=== PATIENT | male | born 1960 | race Caucasian/White ===

== ENCOUNTER 2017-06-18 07:45 | Inpatient (IN) | payer BC ==
--- NOTE | 2017-06-10 13:15 | HP ---
PREOPERATIVE HISTORY AND PHYSICAL: DATE OF ADMISSION: 06/18/17 PROVIDER: Elham Ramirez MD * (DICTATED BY PIPE CONKLIN) CHIEF COMPLAINT: Right knee pain. HISTORY OF PRESENT ILLNESS: Shabbir is a 56-year-old gentleman who has been followed by Dr. Ramirez for ongoing pain in his right knee. It is increased with any ambulation, going up and down stairs, or prolonged standing. He has tried antiinflammatories, pain medication injections, and physical therapy. He is now interested in surgical intervention for correction of the problem. PAST MEDICAL HISTORY: Hypertension, hypercholesterolemia, BPH, osteoarthritis, and obstructive sleep apnea, and insomnia. PAST SURGICAL HISTORY: Bilateral knee arthroscopies, nasal surgery. He reports no complications with the anesthesia with those procedures. CURRENT MEDICATIONS: 1. Percocet 5/325 mg 1 tablet p.o. q. 6 p.r.n. pain. 2. Lipitor 10 mg p.o. q.h.s. 3. Viagra 50 mg by mouth as needed. 4. Avalide 150/12.5 mg 1 p.o. q. day. 5. Ecotrin full strength daily. 6. Multivitamin daily. 7. Dulera inhaler daily. FAMILY HISTORY: Positive for heart disease, diabetes, and cancer. 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 He lives with his . He quit smoking 7 years ago, however, he smoked for 25 years prior to that. He occasionally consumes alcohol. He denies recreational drug use. REVIEW OF SYSTEMS: Constitutional: Negative for recent hospitalizations, fevers, chills, night sweats, or weight loss. HEENT: Negative for headaches, lightheadedness, or balance problems. Negative for blurred or double vision, changes to his hearing, sore throat, runny nose, or frequent nose bleeds. Cardiovascular: Negative for chest pain with exertion, history of heart attack , heart murmur, heart palpitations. Positive for high blood pressure. Negative for embolism or deep vein thrombosis. Respiratory: Negative for chronic cough. Positive for occasional shortness of breath with exertion. Negative for asthma and positive for COPD. Gastrointestinal: Negative for heartburn, nausea, vomiting, diarrhea, constipation, or GERD. Genitourinary: Negative for nighttime urination. Positive for urinary frequency and BPH. Negative for urinary tract infections, or kidney problems. Musculoskeletal: Negative for chronic back pain or recent fracture. Skin: Negative for rashes, lesions, lumps or sores. Neurologic: Negative for seizure, stroke, epilepsy, depression or anxiety. Endocrine: Negative for diabetes or thyroid problems. Hematology: Negative for easy bleeding, bruising or anemia. PHYSICAL EXAMINATION GENERAL: He is a well-developed, well-nourished pleasant male, in no acute distress at rest. He is alert and oriented x3 with appropriate mood and affect. VITAL SIGNS: The patient is 5 feet 11 inches, 204 pounds. Blood pressure 119/ 72, pulse 76, temperature 97.8. HEENT: Normocephalic, atraumatic. Hearing and vision are grossly intact. NECK: His trachea is midline. RESPIRATORY: Lungs are clear to auscultation bilaterally. No wheezes, rales, or rhonchi. CARDIOVASCULAR: Regular rate and rhythm. No murmurs, rubs, or gallops. Normal S1, S2. ABDOMEN: Soft, nondistended, nontender. Normal bowel sounds. EXTREMITIES: Gait: His gait is antalgic favoring the right knee. There is mild thrust at the knee. Exam of the right lower extremity, skin is intact. There are no abrasions or open wounds. There is a moderate effusion at the knee joint. He is tender to palpation along the medial joint line. He has 10 to 120 degrees of flexion. There is no varus or valgus instability. There is no palpable masses or lymph nodes. There are no varicosities or edema distally. He has 5/5 ankle dorsiflexion and plantar flexion strength. Sensation to light touch is intact. He has a 2+ dorsalis pedis pulse. IMAGING: Standing views of the right knee were reviewed in the office and showed advanced degenerative osteoarthritis of the right knee joint with bone-on -bone contact in the medial joint space. There is tricompartmental joint space narrowing, osteophyte formation, and subchondral sclerosis. IMPRESSION: Right knee osteoarthritis. PLAN: The patient is to undergo right total knee arthroplasty by Dr. Ramirez on 06/18/17. The risks, benefits and postoperative course were discussed with the patient at length and he would like to proceed. A prescription for Percocet was sent to his pharmacy for postoperative pain, Coumadin for DVT prophylaxis was also sent. All of his questions were answered to his full satisfaction. He is understanding to call should he develop any problems or concerns. PIPE CONKLIN [id number]/[facility] #: [id number] JD
[~2017-06-18 07:45] MED LIST: Buffered Lidocaine 0.9% SYRIN* 5 ML/SYR SYRINGE INTRADERM ONE; Buffered Lidocaine 0.9% SYRIN* 5 ML/SYR SYRINGE ONE; Gabapentin CAP(*) 300 MG ONE; Gabapentin CAP(*) 400 MG PO ONE; Ibuprofen TAB* 400 MG ONE; Ibuprofen TAB* 400 MG PO ONE; ceFAZolin 2 GM PREMIX (*) 2 GM/50 ML BAG IVPB ONE
[2017-06-18] MEDS ORDERED: Sodium Bicarbonate 8.4%* 50 ML SYRINGE ONE (08:48)
[2017-06-18] MEDS ORDERED: Sodium Bicarbonate 8.4% IV* 50 ML VIAL ONE (09:15)
[2017-06-18] MEDS ORDERED: Midazolam* 1 MG/ML 10 ML VIAL (10 MG) ONE (09:15)
[2017-06-18] MEDS ORDERED: fentaNYL* 50 MCG/ML 2 ML VIAL (100 MCG VIAL) ONE (09:15)
[2017-06-18] MEDS ORDERED: Propofol* 500 MG/50 ML BTL ONE (09:57)
[2017-06-18] MEDS ORDERED: Bisacodyl SUPP* 10 MG SUPP PR PRN (10:37)
[2017-06-18] MEDS ORDERED: Polyethylene Glycol 3350* 17 GM PACKET PO PRN (10:37)
[2017-06-18] MEDS ORDERED: Ketorolac INJ* 30 MG/ML 1 ML VIAL IV PRN (10:40)
[2017-06-18] MEDS ORDERED: EPHEDrine (Pressors)* 50 MG/ML VIAL IV PUSH PRN (10:40)
[2017-06-18] MEDS ORDERED: DiMENhydriNATE IV* 50 MG/ML VIAL IV PUSH PRN (10:40)
[2017-06-18] MEDS ORDERED: Ondansetron INJ* 2 MG/ML VIAL IV PRN (10:40)
[2017-06-18] MEDS ORDERED: Ropivacaine 0.2% EPIDURAL* 200 MG/100 ML BAG EPIDURAL ONE (10:56)
[2017-06-18] MEDS ORDERED: Ropivacaine 0.2% EPIDURAL* 200 MG/100 ML BAG EPIDURAL SCH (11:00)
[2017-06-18] MEDS ORDERED: Lidocaine 2% EPI 1:200000 MPF* 20 ML VIAL ONE ×2 (11:58)
[2017-06-18] MEDS ORDERED: Propofol* 10 MG/ML 20 ML BTL IV PUSH ONE (11:58)
[2017-06-18] MEDS ORDERED: oxyCODONE TAB* 5 MG TAB ONE (13:48)
[2017-06-18] MEDS: oxyCODONE TAB* 5 MG TAB PO PRN ×3 (13:49→22:58)
--- NOTE | 2017-06-18 13:52 | RAD ---
HISTORY: Status post right knee arthroplasty COMPARISONS: April 20, 2017 VIEWS: 2, Frontal and lateral views of the right knee FINDINGS: BONE DENSITY: Normal. BONES: The patient is status post right knee arthroplasty. There is no hardware failure or osteolysis. JOINTS: The patient is status post right knee arthroplasty ALIGNMENT: There is no dislocation. SOFT TISSUES: There is post surgical change to the soft tissues. OTHER FINDINGS: None. IMPRESSION: STATUS POST RIGHT KNEE ARTHROPLASTY
[2017-06-18] MEDS ORDERED: Warfarin TAB(*) 6 MG PO ONE (17:00)
[2017-06-18] MEDS: Atorvastatin* 10 MG TAB PO SCH (17:07)
[2017-06-18] MEDS: ceFAZolin 1 GM VIAL(*) 1 GM in NS 0.9% 50 ML* 50 ML IVPB SCH (18:10)
--- NOTE | 2017-06-18 19:58 | CONS ---
CC: Dr. Jung Gonsales; Dr. Ramirez * MEDICAL CONSULTATION REPORT: DATE OF CONSULT: 06/18/17 REQUESTING PROVIDER: Dr. Elham Ramirez. PRIMARY CARE PROVIDER: Dr. Jung Gonsales. CONSULTING PROVIDER: PIPE Daniel SUPERVISING PHYSICIAN: Dr. Hanna Gonzales. CHIEF COMPLAINT: Medical co-management status post right total knee arthroplasty. HISTORY OF PRESENT ILLNESS: This is a pleasant 56-year-old gentleman with hypertension, hyperlipidemia, BPH, obstructive sleep apnea, and chronic bronchitis, who underwent elective total knee arthroplasty with Dr. Ramirez earlier today. Hospitalist group has been asked to consult for medical co- management. The patient was seen by his primary care provider preoperatively and there were no concerns initiated by PCP at that time. The patient reports that his chronic medical conditions are well controlled and he denies any recent acute illness including complaints of fever, cough, chest pain, palpitations, nausea, vomiting, diarrhea. The patient has no history of known coronary disease. He reports what has been told as a chronic bronchitis that is generally worse during the spring and fall seasons, for which he uses Dulera daily. He denies a known diagnosis of asthma or COPD. He does have a history of smoking, but quit about 7 years ago. He states that he uses his Dulera daily and has had not had any recent exacerbations. When evaluated postoperatively, the patient reports little to no pain. No complains of nausea or vomiting. No chest pain, shortness of breath, or palpitations. PAST MEDICAL HISTORY: 1. Hypertension. 2. Hyperlipidemia. 3. BPH. 4. Obstructive sleep apnea. 5. Osteoarthritis. 6. Chronic bronchitis. PAST SURGICAL HISTORY: 1. Bilateral knee arthroscopy. 2. Nasal surgery. HOME MEDICATIONS: 1. Aspirin 81 mg p.o. daily - held for 4 days preoperatively. 2. Atorvastatin 10 mg p.o. daily. 3. Ipratropium nasal spray, 1 spray in each nostril twice daily. 4. Irbesartan/hydrochlorothiazide 1 tablet p.o. daily. 5. Dulera 200/5 one puff inhaled twice daily. 6. Multivitamin. 7. Percocet 5/325 one tablet p.o. q.6 hours as needed for pain. 8. Potassium over the counter in low-dose formulation. 9. Viagra 50 mg p.o. as needed. SOCIAL HISTORY: The patient lives at home with his . He quit smoking approximately 7 years ago, unsure of his pack-year history. REVIEW OF SYSTEMS: As noted above in the HPI, all systems reviewed and otherwise negative. PHYSICAL EXAM: Most recent vitals, temperature 96.8 degrees Fahrenheit, pulse 57 beats per minute, respiratory rate 14, oxygen saturation 98%, blood pressure 119/82 mmHg. General: This is a very pleasant 56-year-old gentleman accompanied by his , who is sitting comfortably in the recovery area. HEENT : Head is normocephalic, atraumatic. Mucous membranes are pink and moist. Cardiovascular: Heart has regular rate and rhythm without murmurs, rubs, or gallops. Respiratory: Lungs are clear to auscultation without wheezes, crackles , or rhonchi. Abdomen: Abdomen is soft and nontender to palpation. Extremities : No edema noted. Right lower extremity with a surgical dressing and Cryo unit in place. Skin: Limited exam, shows no concerning rashes or lesions. Psych: The patient is alert and appropriately oriented. DIAGNOSTIC STUDIES/LAB DATA: Reviewed CBC, basic metabolic panel, PT and PTT from 06/05/17. All labs were essentially within normal limits. Preop hemoglobin specifically 15.1 g/dL. Preop creatinine of 0.88. Imaging: Preop EKG shows a normal sinus rhythm. ASSESSMENT AND PLAN: This is a 56-year-old gentleman with hypertension; hyperlipidemia; obstructive sleep apnea, compliant with CPAP; chronic bronchitis ; benign prostatic hyperplasia; osteoarthritis, who underwent an elective total knee arthroplasty with Dr. Ramirez earlier today. Hospitalist group has been consulted for medical co-management. 1. Status post right total knee arthroplasty - postoperative management including pain control, DVT prophylaxis, and discharge planning will be per Orthopedic Surgery. 2. Hypertension - the patient is normotensive postoperatively and mildly bradycardic. We will hold his irbesartan/hydrochlorothiazide on postoperative day #1 reevaluate for appropriateness to resume on postop day 2. 3. Obstructive sleep apnea - the patient is compliant with CPAP and brought his home unit with him. 4. Hyperlipidemia - plan to continue Lipitor. 5. Chronic bronchitis - the patient's symptoms are well controlled with Dulera and plan to continue postoperatively. 6. Code status - the patient is full code. 7. DVT prophylaxis - this will be per Orthopedic Surgery with plan for Lovenox bridging to Coumadin. 8. Healthcare proxy is the patient's . DISPOSITION: The patient is being admitted to orthopedic surgery service, hospitalist group will continue to follow along during his postoperative stay. PIPE DANIEL [id number]/[facility] #: [id number] JD
[2017-06-18] MEDS: Docusate CAP* 100 MG PO SCH (20:09)
[2017-06-18] MEDS: Magnesium Hydroxide LIQ* 30 ML UDC PO SCH (20:09)
[2017-06-19] MEDS: ceFAZolin 1 GM VIAL(*) 1 GM in NS 0.9% 50 ML* 50 ML IVPB SCH ×2 (00:58→09:22)
[2017-06-19] MEDS: oxyCODONE TAB* 5 MG TAB PO PRN ×5 (04:47→21:24)
[2017-06-19] MEDS: oxyCODONE/Acetamin 5/325 MG* TAB PO PRN ×5 (05:38→23:41)
[2017-06-19] MEDS ORDERED: diPHENhydraMINE PO* 25 MG PO PRN (06:00)
[2017-06-19] MEDS ORDERED: Acetaminophen TAB* 325 MG PO PRN (06:00)
[2017-06-19] MEDS ORDERED: Ondansetron INJ* 2 MG/ML VIAL IV PRN (06:00)
--- NOTE | 2017-06-19 06:00 | OP ---
OPERATIVE REPORT: DATE OF OPERATION: 06/18/17 DATE OF : 62 SURGEON: Elham Ramirez MD SOLID WASTE MANAGER: PIPE Burleson Ms. did help throughout the procedure with preparation of the leg, wound retraction, manipul ation of the knee, and wound closure. ANESTHESIOLOGIST: Ranjan Espana MD ANESTHESIA: Spinal epidural. PRE-OP DIAGNOSIS: Severe degenerative osteoarthritis of the right knee joint. POST-OP DIAGNOSIS: Severe degenerative osteoarthritis of the right knee joint. OPERATIVE PROCEDURE: Right total knee arthroplasty. INDICATIONS: Mr. Acuna is a 56-year-old gentleman with years of increasingly severe right knee pain. He failed conservative treatment with antiinflammatories, pain medications, intraarticular injection s, and physical therapy. Radiographs confirmed alkv-[id number] arthritis. The patient was developing s evere varus deformity and flexion contracture. Due to continued pain and decreased quality of life, he elected to undergo right total knee arthroplasty. Informed consent was obtained from the patient. He understood the risks of the procedure included but were not limited to bleeding, infection, naukl ge to nearby structures, continued pain, need for further surgery, intraoperative fracture, nerve pal sy, hardware failure or loosening, knee stiffness, loss of motion, stroke, heart attack, blood clot, and . The patient wished to proceed. He understood due to his young age and heavy labor, he wa s at risk of early loosening and failure of the implant. He wished to proceed. HARDWARE USED: Cemented [employer] total knee hardware; for the cement, 2 packages of simplex bone cement; for the femur, a size 6 narrow right Legion Oxinium femoral component; for the tibia, a size 5 right tibial baseplate; for the insert, a 9-mm size 5/6 posterior stabilized articular insert; for the patella, 35- mm 3 peg all poly patellar. COMPLICATIONS: None. ESTIMATED BLOOD LOSS: 250 cc. TOURNIQUET TIME: 61 minutes. SPECIMENS: Bone and cartilage from the right knee joint sent to Pathology. INTRAOPERATIVE FINDINGS: Intraoperatively, the patient was found to have 20-degree flexion contractu re to start. He had full-thickness loss of cartilage in all 3 compartments. A 12-degree varus defor mity at the knee. He had large osteophytes throughout the knee joint. DESCRIPTION OF PROCEDURE: Mr. Acuna was identified in the preanesthesia unit. His right lower extrem ity was marked as the correct operative side. Informed consent was signed and placed in the chart. The patient was taken to the operating room and placed under spinal epidural anesthesia. A Marvin cat heter was placed. Tourniquet was placed on the right thigh. Right lower extremity was prepped and dr aped in the usual sterile fashion. Preop time-out was made to correctly identify the patient's side and site. Appropriate perioperative antibiotics were given within 1 hour of incision. Tourniquet was inflated until tourniquet time for this procedure was 61 minutes. A 12-cm midline inc ision was made with a 10 blade and carried down to the extensor mechanism. A new 10 blade was used t o make a standard medial parapatellar arthrotomy. Patella was subluxed laterally. Exposure was difficult due to extensive osteophyte formation and con tracture. The knee was brought out into full extension and the patella was everted. Large amount of osteophytes superiorly was removed. Oscillating saw was used to remove 9 mm of patellar bone and car tilage. At this point, the knee could be flexed up more easily. Patella was subluxed laterally. Cheyanne ctrocautery was used to subperiosteally elevate soft tissue off the superomedial tibia. Extensive me dial tibial osteophytes were noted and these were removed with a rongeur. Anterior horn of the later al meniscus was sharply released. A drill was used to enter the distal femur. Intramedullary distal femoral cutting guide was pinned on the distal femur and oscillating saw was used to make the approp riate distal femoral cut. Next, the external rotation guide was pinned on the distal femur. Distal femur was sized to a size 6. Size 6 multi-cutting jig was pinned on the distal femur. The oscillati ng saw was used to make the appropriate 4-chamfer cuts. The PCL was completely released and the tibi a was subluxed anteriorly. Extramedullary tibial cutting guide was pinned on the proximal tibia. Oscillating saw was used to ma ke the proximal tibial cut perpendicular to the mechanical axis of the tibia. The bone was carefully removed. The knee was brought out into full extension. His alignment was much improved. Medial and lateral li gamentous balancing was satisfactory. Flexion and extension gaps were well balanced. The knee was i n full extension with a spacer block. The knee was flexed up. Lamina design assistant was placed both medially and laterally. Any remaining menisc us was carefully removed using electrocautery. Posterior osteophytes were removed using a curved ost eotome. A size 6 narrow right femoral trial was chosen. This was impacted on to the distal femur an d had excellent fit. Tibial tray and drop hansel once again confirmed a satisfactory proximal tibial cut . A size 5 tibial tray trial with a 9-mm insert trial was placed and the knee was taken through range of motion. The knee had full extension with hamstring tightness. Flexion to 130 degrees with satis factory patellofemoral tracking. The patella was everted. Patella was sized to a size 35. Three peg holes were drilled thorough the size 35 guide. A 35 trial patella was placed and the knee was taken through range of motion. There was satisfactory patellofemoral tracking. All trials were carefully removed. Bony cut surfaces were copiously irrigated with sterile saline an d dried. Tibia was subluxed anteriorly and sized to a size 5. Proximal tibia was prepared using a si ze 5 keel punch. All bony cut surfaces were copiously irrigated with sterile saline and dried. Jada l implants were cemented into place starting with the tibia, followed by the femur, and lastly the pa tella. A 9-mm insert trial was placed while the knee was brought into full extension. The cement was allowed to fully cure and the tourniquet was turned down at 61 minutes. The knee was copiously irrig ated with sterile saline. Once the cement had fully cured, the insert trial was removed. Any remaining cement from around the capsule and hardware was carefully removed. Electrocautery was used to obtain meticulous hemostasis. Final insert chosen was a 9-mm posterior stabilized articular insert. This was locked into positio n on the tibial tray without difficulty. Stability of the insert was checked and rechecked and noted to be stable. The extensor mechanism was closed over a medium Hemovac drain using interrupted #1 Vicryl's. The res t of the incision was closed in a layered fashion using 0 and 2-0 Vicryl's. Skin was closed using ru nning 3-0 nylon suture. Sterile Xeroform, 4x4's, and Webril were used to cover the incision. Peter wr ap and cold pack were placed over this. The patient's anesthesia was reversed without difficulty. He was taken to the PACU in stable conditi on. Intended weightbearing will be weightbearing as tolerated. Intended DVT prophylaxis will be Coum celeste with a Lovenox bridge. [id number]/[facility] #: [id number]
[2017-06-19] MEDS: Morphine INJ* 2 MG/ML 1 ML SYRINGE (TWO MG - NEW SYRINGE VERSION) IV PRN ×4 (06:22→19:01)
[2017-06-19 06:44] LABS: Hematocrit 30 % (42-52); Hemoglobin 10.8 g/dl (14.0-18.0)
[2017-06-19 07:00] LABS: BUN/Creatinine Ratio 17.2 (8-20); Calcium 8.1 mg/dL (8.6-10.3); EGFR African American 108.5 (>60); EGFR Non-African American 84.4 (>60)
[2017-06-19] MEDS: Morphine TAB Extended Release (*) 30 MG TAB.ER PO SCH ×2 (07:19→18:54)
--- NOTE | 2017-06-19 07:24 | PN ---
Progress Note - Progress Note Date of Service: 06/19/17 SOAP: Subjective: Pt. is alert, reports 10/10 pain and has already had all breakthrough. Objective: Vital Signs: Temp Pulse Resp BP Pulse Ox 99.3 F 74 16 103/51 95 06/19/17 03:29 06/19/17 03:29 06/19/17 07:19 06/19/17 03:29 06/19/17 03:29 Laboratory Results - last 24 hr 06/19/17 06/19/17 06/19/17 06:25 06:25 06:25 Hgb 10.8 L Hct 30 L INR (Anticoag Therapy) 1.17 H Sodium 134 Potassium 4.0 Chloride 103 Carbon Dioxide 26 Anion Gap 5 BUN 16 Creatinine 0.93 Est GFR ( Amer) 108.5 Est GFR (Non-Af Amer) 84.4 BUN/Creatinine Ratio 17.2 Glucose 116 H Calcium 8.1 L RLE - drain removed, tip intact, distally nvi. +df/pf, full sens lt, 2+ dp pulse. 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 in NAD but expressing uncontrolled 10/10 pain - alert will add morphine contin 30 bid 8 mg coumadin today with lovenox bridge PT/OT - wbat rle plan d/c to home tomorrow
[2017-06-19] MEDS: Vitamin THERAPEUTIC TAB PO SCH (08:24)
[2017-06-19] MEDS: Docusate CAP* 100 MG PO SCH ×2 (08:24→19:28)
[2017-06-19] MEDS: Magnesium Hydroxide LIQ* 30 ML UDC PO SCH ×2 (08:24→19:28)
[2017-06-19] MEDS ORDERED: IRBESARTAN HYDROCHLOROTHIAZIDE PO SCH (09:00)
[2017-06-19] MEDS: Enoxaparin(*) 40 MG/0.4 ML SYR SUBCUT SCH (11:25)
[2017-06-19] MEDS: Hydrochlorothiazide TAB* 25 MG PO SCH (14:06)
[2017-06-19] MEDS: Losartan TAB* 25 MG PO SCH (14:07)
--- NOTE | 2017-06-19 16:18 | PN ---
Subjective Date of Service: 06/19/17 Interval History: Patient has no acute complaints except for uncontrolled pain. Patient stats his pain was at 7/10 at the time of the interview and had been 10/10 earlier in the day. Patient feels somewhat better with the initiation of MS Contin. No CP, SOB , Abdominal pain, Dysuria, F/C, N/V, changes in urine, or other complaints. Family History: Unchanged from Admission Social History: Unchanged from Admission Past Medical History: Unchanged from Admission Objective Active Medications: Acetaminophen (Tylenol Tab*) 650 mg PO Q4H PRN PRN Reason: FEVER/PAIN Atorvastatin Calcium (Lipitor*) 10 mg PO QPM [facility] Last Admin: 06/18/17 17:07 Dose: 10 mg Bisacodyl (Dulcolax Supp*) 10 mg CA DAILY PRN PRN Reason: constipation Diphenhydramine HCl (Benadryl Po*) 25 mg PO Q6H PRN PRN Reason: itching Docusate Sodium (Colace Cap*) 100 mg PO BID [facility] Last Admin: 06/19/17 08:24 Dose: 100 mg Enoxaparin Sodium (Lovenox(*)) 40 mg SUBCUT Q24H [facility] Last Admin: 06/19/17 11:25 Dose: 40 mg Hydrochlorothiazide (Hydrodiuril Tab*) 12.5 mg PO DAILY [facility] Last Admin: 06/19/17 14:06 Dose: 12.5 mg Ropivacaine (Ropivacaine 0.2% Epidural*) 200 mg in 100 mls @ 0 mls/hr EPIDURAL .PER RATE KATELYNN; Per Protocol PRN Reason: Protocol Last Admin: 06/18/17 20:47 Dose: 12 mls/hr Lactated Ringer's (Lactated Ringers 500 Ml Bag*) 500 mls @ 2,000 mls/hr IV ONCE PRN PRN Reason: FOR SBP < 90 Lactated Ringer's (Lactated Ringers 1000 Ml Bag*) 1,000 mls @ 100 mls/hr IV PER RATE [facility] Losartan Potassium (Cozaar Tab*) 50 mg PO DAILY [facility] Last Admin: 06/19/17 14:07 Dose: 50 mg Magnesium Hydroxide (Milk Of Magnesia Liq*) 30 ml PO BID [facility] Last Admin: 06/19/17 08:24 Dose: 30 ml Morphine Sulfate (Morphine Inj (Syringe)*) 2 mg IV Q2H PRN PRN Reason: PAIN Last Admin: 06/19/17 11:25 Dose: 2 mg Morphine Sulfate (Ms Contin(*)) 30 mg PO Q12H [facility] Last Admin: 06/19/17 07:19 Dose: 30 mg Multivitamins (Theragran Tab*) 1 tab PO DAILY [facility] Last Admin: 06/19/17 08:24 Dose: 1 tab Ondansetron HCl (Zofran Inj*) 4 mg IV Q6H PRN PRN Reason: nausea Oxycodone HCl (Roxycodone Tab*) 10 mg PO Q4H PRN PRN Reason: PAIN - SEVERE Last Admin: 06/19/17 13:05 Dose: 10 mg Oxycodone/Acetaminophen (Percocet 5/325 Tab*) 1 tab PO Q4H PRN PRN Reason: PAIN Last Admin: 06/19/17 14:07 Dose: 1 tab Pharmacy Profile Note (Coumadin Daily Reminder*) 1 note FOLLOW UP 1700 [facility] Last Admin: 06/18/17 17:08 Dose: 1 note Polyethylene Glycol/Electrolytes (Miralax*) 17 gm PO DAILY PRN PRN Reason: Constipation Warfarin Sodium (Coumadin Tab(*)) 8 mg PO ONCE@1700 ONE PRN Reason: Protocol Stop: 06/19/17 17:01 Vital Signs 06/18/17 06/18/17 06/18/17 16:21 17:07 17:17 Temperature 98.2 F 98.2 F Pulse Rate 63 71 Respiratory 18 16 20 Rate Blood Pressure 117/70 130/79 (mmHg) O2 Sat by Pulse 99 98 Oximetry 06/18/17 06/18/17 06/18/17 19:15 19:16 19:24 Temperature 98.4 F Pulse Rate 64 68 Respiratory 20 15 Rate Blood Pressure 90/56 94/54 (mmHg) O2 Sat by Pulse 92 Oximetry 06/18/17 06/18/17 06/18/17 20:09 21:09 22:58 Temperature 98.5 F Pulse Rate 68 Respiratory 15 20 18 Rate Blood Pressure 106/61 (mmHg) O2 Sat by Pulse 97 Oximetry 06/18/17 06/19/17 06/19/17 23:42 00:58 03:05 Temperature 99.5 F Pulse Rate 78 Respiratory 16 18 Rate Blood Pressure 106/60 (mmHg) O2 Sat by Pulse 96 97 Oximetry 06/19/17 06/19/17 06/19/17 03:29 04:47 05:38 Temperature 99.3 F Pulse Rate 74 Respiratory 16 15 16 Rate Blood Pressure 103/51 (mmHg) O2 Sat by Pulse 95 Oximetry 06/19/17 06/19/17 06/19/17 06:22 06:24 07:15 Temperature Pulse Rate Respiratory 17 20 16 Rate Blood Pressure (mmHg) O2 Sat by Pulse Oximetry 06/19/17 06/19/17 06/19/17 07:19 07:34 08:23 Temperature 98.5 F Pulse Rate 71 Respiratory 16 18 16 Rate Blood Pressure 164/68 (mmHg) O2 Sat by Pulse 94 Oximetry 06/19/17 06/19/17 06/19/17 08:56 09:25 10:03 Temperature Pulse Rate Respiratory 16 16 16 Rate Blood Pressure (mmHg) O2 Sat by Pulse Oximetry 06/19/17 06/19/17 06/19/17 11:19 11:24 11:25 Temperature 99.5 F Pulse Rate 77 Respiratory 16 18 16 Rate Blood Pressure 151/71 (mmHg) O2 Sat by Pulse 92 Oximetry 06/19/17 06/19/17 06/19/17 12:10 13:05 13:08 Temperature Pulse Rate Respiratory 16 16 16 Rate Blood Pressure (mmHg) O2 Sat by Pulse Oximetry 06/19/17 06/19/17 06/19/17 14:07 15:19 16:04 Temperature Pulse Rate Respiratory 16 16 Rate Blood Pressure (mmHg) O2 Sat by Pulse 94 Oximetry Oxygen Devices in Use Now: None Appearance: Patient is a 56yo who appears stated age and is sitting in the bed in [facility]. Eyes: No Scleral Icterus, PERRLA Ears/Nose/Mouth/Throat: NL Teeth, Lips, Gums, Clear Oropharnyx, Mucous Membranes Moist Neck: NL Appearance and Movements; NL JVP, Trachea Midline Respiratory: Symmetrical Chest Expansion and Respiratory Effort, Clear to Auscultation Cardiovascular: NL Sounds; No Murmurs; No JVD, RRR, No Edema Abdominal: NL Sounds; No Tenderness; No Distention, No Hepatosplenomegaly Lymphatic: No Cervical Adenopathy Extremities: - - Right knee covered with bulky dressing and ice pack. Skin: No Rash or Ulcers, No Nodules or Sclerosis Neurological: Alert and Oriented x 3, NL Sensation, NL Muscle Strength and Tone Result Diagrams: 06/19/17 06:25 06/19/17 06:25 Assess/Plan/Problems-Billing Assessment: Patient is a 56yo male who is POD #1 after a Right Total Knee arthroplasty. Patient has relatively uncontrolled pain which is improving. Patient has voided and has no other complaints. - Patient Problems (1) Post-operative state Current Visit: Yes Status: Acute Code(s): Z98.890 - OTHER SPECIFIED POSTPROCEDURAL STATES SNOMED Code(s): 78956879 Comment: POD #1. Pain relatively uncontrolled but improving. Continue management per primary team. (2) Hypertension Current Visit: Yes Status: Acute Code(s): I10 - ESSENTIAL (PRIMARY) HYPERTENSION SNOMED Code(s): 78848173 Comment: Patient hypertensive today. Start on Losartan and HCTZ. Continue to monitor. Resume home medications on discharge. (3) AIDAN (obstructive sleep apnea) Current Visit: Yes Status: Acute Code(s): G47.33 - OBSTRUCTIVE SLEEP APNEA ( ADULT) (PEDIATRIC) SNOMED Code(s): 52000244 Comment: Continue home CPAP. (4) HLD (hyperlipidemia) Current Visit: Yes Status: Acute Code(s): E78.5 - HYPERLIPIDEMIA, UNSPECIFIED SNOMED Code(s): 08432800 Comment: Continue home lipitor. (5) Chronic bronchitis Current Visit: Yes Status: Acute Code(s): J42 - UNSPECIFIED CHRONIC BRONCHITIS SNOMED Code(s): 55461267 Comment: Asymptomatic on no respiratory treaments. Continue Dulera at discharge. Status and Disposition: Disposition per primary team, plan for discharge tomorrow.
[2017-06-19] MEDS ORDERED: Warfarin TAB(*) 4 MG PO ONE (17:00)
[2017-06-19] MEDS: Atorvastatin* 10 MG TAB PO SCH (17:55)
[2017-06-20] MEDS: oxyCODONE TAB* 5 MG TAB PO PRN ×3 (01:29→10:23)
[2017-06-20] MEDS: oxyCODONE/Acetamin 5/325 MG* TAB PO PRN (03:46)
[2017-06-20] MEDS: Morphine TAB Extended Release (*) 30 MG TAB.ER PO SCH (06:48)
--- NOTE | 2017-06-20 07:51 | PN ---
Progress Note - Progress Note Date of Service: 06/20/17 SOAP: Subjective: patient with no complaints, pain controlled with PO meds Objective: Vital Signs Temp Pulse Resp BP Pulse Ox 98.9 F 75 18 125/65 94 06/20/17 03:54 06/20/17 03:54 06/20/17 06:48 06/20/17 03:54 06/20/17 03:54 Laboratory Last Values Hgb 10.8 g/dl (14.0-18.0) L 06/19/17 06:25 Hct 30 % (42-52) L 06/19/17 06:25 INR (Anticoag Therapy) 1.17 (0.89-1.11) H 06/19/17 06:25 Sodium 134 mmol/L (133-145) 06/19/17 06:25 Potassium 4.0 mmol/L (3.5-5.0) 06/19/17 06:25 Chloride 103 mmol/L (101-111) 06/19/17 06:25 Carbon Dioxide 26 mmol/L (22-32) 06/19/17 06:25 Anion Gap 5 mmol/L (2-11) 06/19/17 06:25 BUN 16 mg/dL (6-24) 06/19/17 06:25 Creatinine 0.93 mg/dL (0.67-1.17) 06/19/17 06:25 Est GFR ( Amer) 108.5 (>60) 06/19/17 06:25 Est GFR (Non-Af Amer) 84.4 (>60) 06/19/17 06:25 BUN/Creatinine Ratio 17.2 (8-20) 06/19/17 06:25 Glucose 116 mg/dL (70-100) H 06/19/17 06:25 Calcium 8.1 mg/dL (8.6-10.3) L 06/19/17 06:25 incision: c/d; dressing changed PE: NVI Assessment: s/p right TKA Plan: 1) continue Lovenox/coumadin for DVT prophylaxis 2) PT/OT- WBAT 3) Home today, F/U with James in 2 weeks
--- NOTE | 2017-06-20 07:52 | PN ---
Progress Note - Progress Note Date of Service: 06/20/17 SOAP: Subjective: Pt. is doing much better today with ms contin. Wants to go home. Objective: RLE - dressing changed, inc c/d/i. distally nvi. Vital Signs: Temp Pulse Resp BP Pulse Ox 98.9 F 75 18 125/65 94 06/20/17 03:54 06/20/17 03:54 06/20/17 06:48 06/20/17 03:54 06/20/17 03:54 Assessment: 56yo M pod 2 s/p RTKA Plan: am labs pending wbat pt/ot plan d/c to home today with vns will send ER morphine today
[2017-06-20 08:38] LABS: Hematocrit 30 % (42-52); Hemoglobin 10.6 g/dl (14.0-18.0)
[2017-06-20 08:43] VITALS: BP 116/64
[2017-06-20] MEDS: Losartan TAB* 25 MG PO SCH (08:47)
[2017-06-20] MEDS: Magnesium Hydroxide LIQ* 30 ML UDC PO SCH (08:48)
[2017-06-20] MEDS: Vitamin THERAPEUTIC TAB PO SCH (08:48)
[2017-06-20] MEDS: Docusate CAP* 100 MG PO SCH (08:48)
[2017-06-20] MEDS: Hydrochlorothiazide TAB* 25 MG PO SCH (08:48)
[2017-06-20] MEDS: Enoxaparin(*) 40 MG/0.4 ML SYR SUBCUT SCH (10:27)
--- NOTE | 2017-06-21 04:08 | DS ---
AMENDED REPORT NOW INCLUDES COSIGNER DESIGNATION - ESIGNED BEFORE ADJUSTMENT DISCHARGE SUMMARY: DATE OF ADMISSION: 06/18/17. DATE OF DISCHARGE: 06/20/17. SURGEON: Elham Ramirez MD * (DICTATED BY PIPE GERARD) PROCEDURE: A right total knee arthroplasty. PRINCIPAL DIAGNOSIS: Severe end-stage osteoarthritis of the right knee joint. DISCHARGE DIAGNOSIS: Severe end-stage osteoarthritis of the right knee joint. HISTORY OF PRESENT ILLNESS: Mr. Acuna is a 56-year-old gentleman who has complaints of right knee pain secondary to severe end-stage osteoarthritis. He has failed conservative management and elected to proceed with a right total knee arthroplasty. HOSPITAL COURSE: Mr. Acuna is a 56-year-old gentleman. He was admitted electively to the hospital on 06/18/17 and underwent a right total knee arthroplasty which she tolerated well with no complications. Postoperatively, he was placed on Lovenox and aspirin for DVT prophylaxis and on postoperative day #1 his H and H was 10.8 and 30 and postoperative day #2, 10.6 and 30. His INR went from 1.17 to 1.56. At the time of discharge, he was afebrile. He was ambulating well with the aid of a walker. He was discharged home. DISCHARGE MEDICATIONS: 1. Percocet 5/325 one to two tabs every 4-6 hours. 2. Morphine sulfate extended release 15 mg twice daily. 3. Colace 100 mg 2 to 3 tabs daily as needed for constipation. 4. Coumadin 2 mg tabs. 5. Hydrochlorothiazide 12.5 mg daily. 6. Lipitor 10 mg daily. 7. Losartan 50 mg daily. PHYSICAL EXAMINATION: He is afebrile. Vital signs are stable. His wound is clean and dry. He was ambulating well with the aid of a walker. He was distally neurovascularly intact. DISCHARGE INSTRUCTIONS: Mr. Acuna was discharged home. He is given prescription for Percocet 5/325 to take one to two tabs every 4-6 hours as needed for pain. He was also given morphine sulfate extended release 15 mg tabs twice daily. He was given prescription for Colace for constipation. His last INR was 1.56. He was asked to take 6 mg of Coumadin tonight, 6 mg of Coumadin on Thursday night and he will have his INR rechecked Thursday with [facility]. He will follow up with Dr. Ramirez in 2 weeks. He is weightbearing as tolerated. PIPE GERARD [id number]/CPS #: [id number] MTDD
== END 2017-06-20 11:00 | disposition home health service (06) | DRG 302 ==
LOC: AA 07:45 → SSU 15:01
PROVIDERS: ADMIT Orthopaedic Surgery Adult Reconstructive Orthopaedic Surgery; ATTEND Orthopaedic Surgery Adult Reconstructive Orthopaedic Surgery
PROC: 0SRC069 Replacement of Right Knee Joint with Oxidized Zirconium on Polyethylene Synthetic Substitute, Cemented, Open Approach (ICD-10-PCS; principal; 2017-06-18 09:00)
DX: M17.11 Unilateral primary osteoarthritis, right knee (principal); E78.00 Pure hypercholesterolemia, unspecified; I10 Essential (primary) hypertension; N40.0 Benign prostatic hyperplasia without lower urinary tract symptoms; G47.33 Obstructive sleep apnea (adult) (pediatric); G47.00 Insomnia, unspecified; Z79.899 Other long term (current) drug therapy; Z82.49 Family history of ischemic heart disease and other diseases of the circulatory system; Z83.3 Family history of diabetes mellitus; Z80.9 Family history of malignant neoplasm, unspecified; Z87.891 Personal history of nicotine dependence; M25.761 Osteophyte, right knee; J42 Unspecified chronic bronchitis
CPT/HCPCS: 36415; 62327; 80048; 85014; 85018; 85610; 94760; A9270-GY; C1776; J0690; J1650; J1885; J2250; J2270; J2704; J2795; J3010

== ENCOUNTER 2018-08-12 06:41 | Inpatient (IN) | payer BC ==
--- NOTE | 2018-07-28 16:55 | HP ---
DATE OF ADMISSION: 08/26/2018. DATE OF OFFICE VISIT: 07/28/2018. SURGEON: Dr. Elham Ramirez * (dictated by PIPE Burleson). PROCEDURE: Left total knee arthroplasty. CHIEF COMPLAINT: Left knee pain. HISTORY OF PRESENT ILLNESS: Mr. Acuna is a 57-year-old gentleman with continued complaints of left knee pain. He has failed conservative treatment and elected to proceed with a left total knee arthroplasty. PAST MEDICAL HISTORY: Hypertension, high cholesterol, sleep apnea. PAST SURGICAL HISTORY: Right knee arthroscopy, right total knee arthroplasty, left knee arthroscopy, and nasal surgery. CURRENT MEDICATIONS: 1. Lipitor 10 mg at bedtime. 2. Viagra 50 mg as needed. 3. Avalide 150-12.5 mg daily. 4. Clonazepam 2 mg daily. 5. Aspirin 81 mg daily. 6. Dulera inhaler. ALLERGIES: No known drug allergies. FAMILY HISTORY: Coronary artery disease, diabetes, stroke. SOCIAL HISTORY: He is a 57-year-old gentleman, lives with his . He does not smoke, use drugs, he uses occasional alcohol. REVIEW OF SYSTEMS: A complete 14 point review of systems was reviewed. The patient is positive for a history of asthma and a history of hepatitis B. He denies a history of DVT, PE, HIV, MRSA, or anesthesia problems. PHYSICAL EXAMINATION GENERAL: He is well-developed, well-nourished, in no acute distress. VITAL SIGNS: He stands 5'11" tall, weighs 209 pounds. Blood pressure 132/82, heart rate 80. HEENT: Normocephalic, atraumatic. NECK: Supple. No palpable lymph nodes. CARDIO: Regular rate and rhythm. Strong S1, S2. PULMONARY: The lungs are clear to auscultation bilaterally. ABDOMEN: Soft, nontender, nondistended. MUSCULOSKELETAL: Left lower extremity: The skin is intact. There are no open wounds or abrasions. There is a moderate joint effusion. He has some tenderness on the medial joint line. There is a varus deformity of the knee. Range of motion is 10 to 120 degrees of flexion. He has 2+ dorsalis pedis pulse. Intact to sensation. His lower extremity muscle group strengths are intact at 5/5. NEUROLOGIC: He is alert and oriented times three. ASSESSMENT AND PLAN: Mr. Acuna is a 57-year-old gentleman with end-stage osteoarthritis of the left knee. He failed conservative treatment and elected to proceed with a left total knee arthroplasty. The surgery is scheduled for with Dr. Ramirez. Dr. Ramirez discussed the risks and benefits of the surgery at today's visit and all of his questions were answered. He will follow -up with Dr. Ramirez two weeks after the surgery. PIPE BURLESON [id number]/CPS #: [id number] MTDD
[~2018-08-12 06:41] MED LIST changes: -Buffered Lidocaine 0.9% SYRIN* 5 ML/SYR SYRINGE ONE; +Dexamethasone IV* 4 MG/ML 1 ML (4 MG) IV SLOW PU ONE; +Famotidine IV* 10 MG/ML 2 ML (20 mg) IV ONE; -Gabapentin CAP(*) 300 MG ONE; +Gabapentin CAP(*) 300 MG PO ONE; -Gabapentin CAP(*) 400 MG PO ONE; -Ibuprofen TAB* 400 MG ONE; -Ibuprofen TAB* 400 MG PO ONE; +Lactated Ringers 1000 ML Bag* 1,000 ML IV SCH; +Tranexamic Acid 1,000 MG in NS 0.9% 50 ML* (outpatient use) IV SCH; -ceFAZolin 2 GM PREMIX (*) 2 GM/50 ML BAG IVPB ONE; +celeCOXIB CAP* 200 MG PO ONE
[2018-08-12] MEDS ORDERED: Bupivacaine 0.5%* 50 ML VIAL ONE (06:44)
--- OUTSIDE RECORDS SUMMARY | 2018-08-12 06:44 | XMS REPORT | Continuity of Care Document ---
:1960 External Reference #:[id number] Author Name AnaidVignesh rubio Care Team Providers Name Role Phone Jung Gonsales MD Primary Care Physician Unavailable Payers Type Date Identification Numbers Payment Provider Subscriber Effective: 2015 Policy Number: [id number] LEON Mike Macarena Acuna PayID: [id number] [address] [address] [place] [address] Advance Directives Description No Information Available Problems Date Description Provider Status Onset: 08/14/2014 Dyssomnia Florinda Mendes MD Active Onset: 08/14/2014 Chronic pansinusitis Florinda Mendes MD Active Onset: 08/14/2014 Insomnia Florinda Mendes MD Active Onset: 09/18/2014 Obstructive sleep apnea syndrome Florinda Mendes MD Active Onset: 10/29/2015 Localized, primary osteoarthritis Elham Ramirez M.D. Active Onset: 01/16/2017 Localized, primary osteoarthritis of the Elham Ramirez M.D. Active pelvic region and thigh Onset: 07/27/2017 Arthroplasty of knee Elham Ramirez M.D. Active Family History Date Family Member(s) Problem(s) Comments General Heart Disease General Diabetes General Cancer Father Hypertension Father Heart Disease Mother Heart Disease Mother Alzheimer's Disease Mother living in care home in [place] Siblings 1 Siblings Sister w/stroke @ age 53 Social History Type Date Description Comments Sex Unknown Lives With Lives With Children Occupation Currently Working Occupation [email or web address] On hold d/t knee surgery. 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 Allergies, Adverse Reactions, Alerts Description No Known Drug Allergies Medications Medication Date Status Form Strength Qnty SIG Indications Ordering Provider Amoxicillin Active Capsules 500mg 4caps 4 tablets Elham 018 1 hour Angela Ramirez before dental work Walker Active Misc Fixed 5" M25.561 Elham Wheels/Fixed 017 Angela Ramirez With 5 Adjustment Holes/5" M17.0 Lipitor 08/11/2014 Active Tablets 10mg 90tabs 1 by mouth Unknown every night at bedtime Viagra 08/11/2014 Active Tablets 50mg 6tabs 1 by mouth Unknown as needed Avalide 08/11/2014 Active Tablets 150-12 90tabs 1 by mouth Unknown .5mg every day Clonazepam Active Tablets 2mg Unknown Ecotrin Low Active Tablets DR 81mg Unknown Strength Cyclobenzaprine 09/23/2017 - Hx Tablets 10mg 60tabs take 1 tab Elham HCL 07/04/2018 by mouth 2-3 Angela Ramirez times a day as needed Oxycodone-Acetamin 09/14/2017 - Hx Tablets 5-325m 90tabs 1-2 tabs by Elham ophen 07/04/2018 g mouth qhs as Angela Ramirez needed for pain Tramadol HCL 08/11/2017 - Hx Tablets 50mg 60tabs 1 tablet by Nancy 09/07/2017 mouth every MD Margarita 4-6 hours as needed pain Gabapentin 07/27/2017 - Hx Tablets 600mg 90tabs Note M2 Laxmi 09/07/2017 increase 1 5. Cody, MONICA, 1/2 tablets 57 RN, SET UP TECHNICIAN-BC by mouth 1 every night at bedtime Cyclobenzaprine 07/21/2017 - Hx Tablets 10mg 60tabs take 1 tab Elham HCL 09/07/2017 by mouth 2 Angela Ramirez times a day as needed Ibuprofen 07/21/2017 - Hx Tablets 800mg 60tabs 1 tab by Elham 07/27/2018 mouth every Angela Ramirez 8 hours as needed with food Gabapentin 07/13/2017 - Hx Capsules 300mg 30caps 1 tab by Elham 07/27/2017 mouth before Angela Ramirez bed Morphine Sulfate 06/20/2017 - Hx Caps ER 20mg 30caps 1 tablet by Elham ER 06/20/2017 24HR mouth q12 Angela Ramirez hours as needed for pain Colace 06/20/2017 - Hx Capsules 100mg 90caps 1 tab by Elham 07/27/2018 mouth 2-3 Angela Ramirez times a day as needed Morphine Sulfate 06/20/2017 - Hx Tablets ER 15mg 30tabs take one tab Elham ER 07/22/2017 by mouth Angela Ramirez every 12 hours as needed for pain. Coumadin 06/05/2017 - Hx Tablets 2mg 30tabs take 2 mg by M2 Elham 07/22/2017 mouth every 5Lu Ramirez M.D. night at 57 bedtime or 1 as directed by through visiting nurse Commode 06/05/2017 - Hx Misc M2 Elham 07/22/2017 5Lu Ramirez M.D. 57 1 Prosthetic Knee 12/05/2015 - Hx Carolyn Sleeve 07/27/2018 DEBORAH Casillas Varus Unloading 10/29/2015 - Hx wear when M1 Elham Brace Rle 07/27/2018 ambulating Cruz Ramirez M.D. or standing 11 for prolonged periods dx - severe r knee oa Percocet 10/29/2015 - Hx Tablets 5-325m 60tabs 1 tabs by M1 Elham 08/11/2017 g mouth q4-6 7. Angela Ramirez as needed 11 pain Sonata 08/14/2014 - Hx Capsules 5mg 30caps Take One G4 Florinda 06/04/2017 Capsule By Cruz Mendes MD Mouth Once 00 Daily AT Night as Needed Max 1 Capsule / Day Ecotrin - Hx Unknown 04/29/2017 Milk Of Magnesia - Hx as needed Unknown 09/07/2017 Tamsulosin HCL - Hx Capsules 0.4mg qd Marlen, 07/04/2018 MD Cristian Medications Administered in Office Medication Date Status Form Strength Qnty SIG Indications Ordering Provider Synvisc Or Administered Injection Carolyn Synvisc-One 016 Bordoni, ELECTRONIC MAINTENANCE SUPERVISOR Injection 1 MG Synvisc Or Administered Injection Carolyn Synvisc-One 016 Bordoni, ELECTRONIC MAINTENANCE SUPERVISOR Injection 1 MG Depomedrol Administered Injection Elham 40MG 016 Angela Ramirez Immunizations Description No Information Available Vital Signs Date Vital Result Comment 07/28/2018 1:37pm Height 71 inches 5'11" Weight 209.00 lb Heart Rate 80 /min BP Systolic 132 mmHg BP Diastolic 82 mmHg BMI (Body Mass Index) 29.1 kg/m2 07/05/2018 3:42pm Height 71 inches 5'11" Heart Rate 80 /min BP Systolic 120 mmHg BP Diastolic 74 mmHg Body Temperature 98.1 F Pain Level 8 09/14/2017 8:44am Height 71 inches 5'11" Heart Rate 70 /min BP Systolic 142 mmHg BP Diastolic 78 mmHg Respiratory Rate 20 /min Body Temperature 96.9 F Pain Level 0 09/08/2017 11:15am Height 71 inches 5'11" Weight 212.00 lb Heart Rate 96 /min BP Systolic Sitting 124 mmHg BP Diastolic Sitting 84 mmHg Respiratory Rate 14 /min O2 % BldC Oximetry 99 % BMI (Body Mass Index) 29.6 kg/m2 08/17/2017 9:59am Height 71 inches 5'11" Weight 195.00 lb Heart Rate 92 /min BP Systolic 133 mmHg BP Diastolic 83 mmHg Body Temperature 96.6 F BMI (Body Mass Index) 27.2 kg/m2 08/12/2017 11:27am Height 71 inches 5'11" Weight 199.50 lb with shoes Heart Rate 96 /min BP Systolic Sitting 130 mmHg Rue large cuff BP Diastolic Sitting 76 mmHg Rue large cuff Respiratory Rate 16 /min O2 % BldC Oximetry 98 % On Ra BMI (Body Mass Index) 27.8 kg/m2 07/27/2017 8:57am Height 71 inches 5'11" Weight 200.00 lb BP Systolic 124 mmHg BP Diastolic 74 mmHg Respiratory Rate 18 /min Pain Level 3 BMI (Body Mass Index) 27.9 kg/m2 07/22/2017 8:26am Height 71 inches 5'11" Weight 197.12 lb Heart Rate 94 /min BP Systolic Sitting 128 mmHg Rue reg cuff BP Diastolic Sitting 80 mmHg Rue reg cuff Respiratory Rate 16 /min O2 % BldC Oximetry 96 % On Ra BMI (Body Mass Index) 27.5 kg/m2 06/29/2017 8:00am Height 71 inches 5'11" Weight 200.00 lb per pt Heart Rate 78 /min reg BP Systolic Sitting 130 mmHg Lue, reg cuff BP Diastolic Sitting 84 mmHg Lue, reg cuff Respiratory Rate 16 /min Pain Level 4 Right knee BMI (Body Mass Index) 27.9 kg/m2 06/05/2017 10:57am Height 71 inches 5'11" Weight 204.00 lb Heart Rate 76 /min BP Systolic 119 mmHg BP Diastolic 72 mmHg Body Temperature 97.8 F BMI (Body Mass Index) 28.4 kg/m2 04/20/2017 2:48pm Height 71 inches 5'11" Weight 200.00 lb Heart Rate 84 /min BP Systolic 115 mmHg BP Diastolic 70 mmHg Respiratory Rate 20 /min Body Temperature 97.2 F BMI (Body Mass Index) 27.9 kg/m2 01/16/2017 2:02pm Height 71 inches 5'11" Weight 210.00 lb BP Systolic 135 mmHg BP Diastolic 76 mmHg Respiratory Rate 16 /min Body Temperature 97.5 F Pain Level 6 BMI (Body Mass Index) 29.3 kg/m2 07/16/2016 9:31am Height 71 inches 5'11" Weight 210.00 lb Heart Rate 60 /min BP Systolic Sitting 142 mmHg BP Diastolic Sitting 92 mmHg Respiratory Rate 16 /min Pain Level 2 BMI (Body Mass Index) 29.3 kg/m2 05/12/2016 3:24pm Height 71 inches 5'11" Weight 210.00 lb Heart Rate 60 /min Respiratory Rate 16 /min Pain Level 4 BMI (Body Mass Index) 29.3 kg/m2 11/21/2015 3:58pm Height 71 inches 5'11" Weight 210.00 lb Heart Rate 89 /min BP Systolic 156 mmHg BP Diastolic 90 mmHg BMI (Body Mass Index) 29.3 kg/m2 11/05/2015 2:35pm Height 72 inches 6'0" 10/29/2015 1:49pm Height 72 inches 6'0" Weight 210.00 lb Heart Rate 87 /min BP Systolic 150 mmHg BP Diastolic 90 mmHg BMI (Body Mass Index) 28.5 kg/m2 11/03/2014 3:27pm Heart Rate 79 /min BP Systolic Sitting 144 mmHg BP Diastolic Sitting 78 mmHg Respiratory Rate 20 /min O2 % BldC Oximetry 97 % 09/18/2014 3:18pm Height 70 inches 5'10" Weight 200.00 lb Heart Rate 85 /min BP Systolic Sitting 144 mmHg BP Diastolic Sitting 82 mmHg Respiratory Rate 20 /min O2 % BldC Oximetry 97 % BMI (Body Mass Index) 28.7 kg/m2 08/14/2014 3:09pm Height 71 inches 5'11" Weight 210.00 lb Heart Rate 74 /min BP Systolic Sitting 85878 mmHg Respiratory Rate 18 /min Body Temperature 98.1 F O2 % BldC Oximetry 98 % BMI (Body Mass Index) 29.3 kg/m2 Neck Circumference in inches 18.5 Results Test Date Facility Test Result H/L Range Note Urine Culture And 07/09/2017 [facility] Urine Culture SEE RESULT [address] [place] [address] [phone] Urinalysis Profile 07/09/2017 [facility] Urine Color Straw [address] [place] [address] [phone] Urine Appearance Clear Urine Specific Melba 1.009 Low 1.010-1.030 Urine pH 7.0 N 5-9 Urine Urobilinogen Negative Negative Urine Ketones Negative Negative Urine Protein Negative Negative Urine Leukocytes Negative Negative Urine Blood 1+ Abnormal Negative Urine Nitrite Negative Negative Urine Bilirubin Negative Negative Urine Glucose Negative Negative Urine White Blood Cell Trace(0-5/hpf) Absent Urine Red Blood Cell Trace(0-2/hpf) Absent Urine Bacteria Absent Absent Basic Metabolic Panel 06/05/2017 [facility] Sodium 137 mmol/L N [address] [place] [address] [phone] Potassium 3.9 mmol/L N 3.5-5.0 Chloride 103 mmol/L N 101-111 Co2 Carbon Dioxide 27 mmol/L N 22-32 Anion Gap 7 mmol/L N 2-11 Glucose 86 mg/dL N 70-100 Blood Urea Nitrogen 18 mg/dL N 6-24 Creatinine 0.88 mg/dL N 0.67-1.17 BUN/Creatinine Ratio 20.5 High 8-20 Calcium 9.5 mg/dL N 8.6-10.3 Egfr Non- 89.9 N >60 Egfr 115.6 N >60 2 Inr/Protime 06/05/2017 [facility] Inr 0.98 N 0.89-1.[address] [place] [address] [phone] Laboratory test 06/05/2017 [facility] Partial 26.7 seconds N 26.0-36.[address] [place] [address] PTT [phone] Type & Screen 06/05/2017 [facility] Patient A Positive N [address] [place] [address] [phone] Antibody Screen NEGATIVE N Urine Culture And 06/05/2017 [facility] Urine Culture SEE RESULT [address] [place] [address] [phone] Urinalysis Profile 06/05/2017 [facility] Urine Color Yellow N [address] [place] [address] [phone] Urine Appearance Clear N Urine Specific Melba 1.025 N 1.010-1.030 Urine pH 5.0 N 5-9 Urine Urobilinogen Negative N Negative Urine Ketones Negative N Negative Urine Protein Negative N Negative Urine Leukocytes Negative N Negative Urine Blood Negative N Negative * * Abnormal Negative 4 Urine Nitrite Negative N Negative Urine Bilirubin Negative N Negative Urine Glucose Negative N Negative CBC No Diff 06/05/2017 [facility] White Blood 8.5 10^3/uL N 3.5-10.[address] [place] [address] [phone] Red Blood Count 4.63 10^6/uL N 4.0-5.4 Hemoglobin 15.1 g/dL N 14.0-18.0 Hematocrit 44 % N 42-52 Mean Corpuscular Volume 95 fL High 80-94 Mean Corpuscular Hemoglobin 33 pg High 27-31 Mean Corpuscular HGB Conc 35 g/dL N 31-36 Red Cell Distribution Width 13 % N 10.5-15 Platelet Count 210 10^3/uL N 150-450 Mean Platelet Volume 7 um3 Low 7.4-10.4 1 SEE RESULT BELOW Name: KEILA ACUNA : [address]: Elham Ramirez MD Acct: [id number] Unit: [id number] AGE: 56 Location: [facility] Re07/09/17 SEX: M Status: REG REF SPEC: [id number] ZOHRA: 07/09/[address] [facility] [address]: Elham Ramirez MD REQ: [id number] RECD: 07/09/17 STATUS: JIM DUPREE DR: Jung Gonsales MD _ SOURCE: URINE SPDESC: ORDERED: Urine Culture QUERIES: Urine Source: Random Procedure Result Reported Site Urine Culture Final 07/11/17- 0936 ML No Growth (<1,000 CFU/mL) * ML - [facility] ([facility]) . END OF REPORT * ML=Testing performed at [facility] DEPARTMENT OF PATHOLOGY, [address] [place] [address] Odilon Palacios M.D. Director [facility] # [id number] 2 Because ethnic data is not always readily available, this report includes an eGFR for both -Americans and non- Americans. The National Kidney Disease Education Program (NKDEP) does not endorse the use of the MDRD equation for patients that are not between the ages of 18 and 70, are , have extremes of body size, muscle mass, or nutritional status, or are non- or non-. According to the National Kidney Foundation, irrespective of diagnosis, the stage of the disease is based on the level of kidney function: Stage Description GFR(mL/min/1.73 m(2)) 1 Kidney damage with normal or decreased GFR 90 2 Kidney damage with mild decrease in GFR 60-89 3 Moderate decrease in GFR 30-59 4 Severe decrease in GFR 15-29 5 Kidney failure <15 (or dialysis) 3 SEE RESULT BELOW Name: KEILA ACUNA : [address]: Elham Ramirez MD Acct: [id number] Unit: [id number] AGE: 56 Location: PAT Re06/05/17 SEX: M Status: REG REF SPEC: [id number] ZOHRA: 06/05/[address] [facility] [address]: Elham Ramirez MD REQ: [id number] RECD: 06/05/17 STATUS: COMP _ SOURCE: URINE SPDESC: ORDERED: Urine Culture QUERIES: Urine Source: Clean Catch Procedure Result Reported Site Urine Culture Final 06/06/17- 1220 ML No Growth (<1,000 CFU/mL) * ML - [facility] ([facility]) . END OF REPORT * ML=Testing performed at Main Lab DEPARTMENT OF PATHOLOGY, [address] [place] [address] Odilon Palacios M.D. Director [facility] # [id number] 4 *Ascorbic acid is present which may interfere with detection of blood. Procedures Date Code Description Status 06/18/2017 98136 TKR Total Knee Replacement Completed 06/18/2017 01718 TKR Total Knee Replacement Completed 04/04/2016 68637 ECHO Transthoracic, Real-Time 2D With Doppler And Color Completed Flow 11/21/201590789 Inject/Drain Joint/Bursa Major W/O US Completed 10/29/2015 Inject/Drain Joint/Bursa Major W/O US Completed 08/14/2014 19605 Polysomnography Sleep Staging 4+ Parameters W/Cpap Completed Encounters Type Date Location Provider Dx Diagnosis Office Visit 07/05/2018 Orthopedic Elham Ramirez, M25.562 Pain in left knee 3:00p [facility] M25.462 Effusion, left knee M17.12 Unilateral primary osteoarthritis, left knee Z96.651 Presence of right artificial knee joint M25.561 Pain in right knee Office Visit 09/08/2017 Pulmonology And Laxmi G47.33 Obstructive sleep 11:30a [facility] Ross RN, apnea (adult) [facility] SET UP TECHNICIAN-BC (pediatric) G47.00 Insomnia, unspecified G47.61 Periodic limb movement disorder M79.661 Pain in right lower leg Office Visit 08/12/2017 Pul[facility]ology [facility] Laxmi G47.33 Obstructive sleep 11:30a [facility] Ross RN, apnea (adult) [facility] SET UP TECHNICIAN-BC (pediatric) G47.00 Insomnia, unspecified G47.61 Periodic limb movement disorder M79.661 Pain in right lower leg Office Visit 07/22/2017 Pulmonology And Laxmi G47.33 Obstructive sleep 8:30a [facility] Ross RN, apnea (adult) [facility] SET UP TECHNICIAN-BC (pediatric) G47.00 Insomnia, unspecified G47.61 Periodic limb movement disorder M79.604 Pain in right leg Office Visit 04/20/2017 2:45p [facility]opedic Services Elham James, M25.561 Pain in right Of C.M.A. M.D. knee M25.562 Pain in left knee M17.0 Bilateral primary osteoarthritis of knee Office Visit 01/16/2017 2:15p [facility] Elham Ramirez, M25.552 Pain in left Of C.M.A. M.D. hip M25.561 Pain in right knee M25.562 Pain in left knee M17.0 Bilateral primary osteoarthritis of knee M16.12 Unilateral primary osteoarthritis, left hip Office Visit 07/16/2016 9:30a [facility] Elham Ramirez, M25.561 Pain in right Of C.M.A. M.D. knee M25.562 Pain in left knee M17.0 Bilateral primary osteoarthritis of knee M25.462 Effusion, left knee M25.461 Effusion, right knee Office Visit 05/12/2016 3:30p [facility] Elham Ramirez, M25.562 Pain in left Of C.M.A. M.D. knee M25.561 Pain in right knee M17.0 Bilateral primary osteoarthritis of knee Office Visit 11/05/2015 2:15p [facility] Elham Ramirez, M25.561 Pain in right Of C.M.A. M.D. knee M17.11 Unilateral primary osteoarthritis, right knee Office Visit 10/29/2015 Orthopedic Elham M17.11 Unilateral primary 1:45p Services Eleno Ramirez M.D. osteoarthritis, right C.M.A. knee M25.561 Pain in right knee M25.461 Effusion, right knee Office Visit 11/03/2014 3:30p Pulmonology And Florinda 327.23 Obstructive Sleep [facility] Apnea Adult & Bulk Plant Supervisor Pediatric 780.52 Insomnia Unspecified Office Visit 09/18/2014 3:30p Pulmonology [facility] Florinda 327.23 Obstructive Sleep [facility] Adult & Bulk Plant Supervisor Pediatric 780.52 Insomnia Unspecified Office Visit 08/14/2014 3:30p Pulmonology [facility] Florinda 780.59 Sleep Disturbances [facility] Other Bulk Plant Supervisor 473.8 Sinusitis Chronic Other 780.52 Insomnia Unspecified Plan of Treatment Future Appointment(s):08/27/2018 9:45 am - Elham Ramirez M.D. at [facility].ALu08/12/2018 3:30 pm - Elham Ramirez M.D. at [facility].Lu
[2018-08-12] MEDS ORDERED: Gabapentin CAP(*) 300 MG ONE (07:14)
[2018-08-12] MEDS ORDERED: ceFAZolin 2 GM PREMIX in ORs 2 GM/50 ML BAG IVPB ONE (07:14)
[2018-08-12] MEDS ORDERED: Dexamethasone IV* 4 MG/ML 1 ML (4 MG) ONE (07:14)
[2018-08-12] MEDS ORDERED: Famotidine IV* 10 MG/ML 2 ML (20 mg) ONE (07:14)
[2018-08-12] MEDS ORDERED: celeCOXIB CAP* 100 MG ONE (07:14)
[2018-08-12] MEDS ORDERED: fentaNYL* 50 MCG/ML 2 ML VIAL (100 MCG VIAL) ONE ×2 (08:06→12:33)
[2018-08-12] MEDS ORDERED: ROPIVACAINE 5 MG/ML 30 ML BTL (0.5%) ONE (08:06)
[2018-08-12] MEDS ORDERED: Midazolam* 1 MG/ML 5 ML VIAL (5 MG) ONE (08:06)
[2018-08-12] MEDS ORDERED: Bupivacaine 0.5% SDV PF* 30ML VIAL ONE (08:47)
[2018-08-12] MEDS ORDERED: HYDROmorphone INJ1* 1 MG/ML SYRINGE ONE ×3 (10:34→12:33)
[2018-08-12] MEDS ORDERED: Ondansetron INJ* 2 MG/ML VIAL ONE (10:36)
[2018-08-12] MEDS ORDERED: Propofol* 500 MG/50 ML BTL ONE (10:46)
[2018-08-12] MEDS ORDERED: DiMENhydriNATE IV* 50 MG/ML VIAL IV PUSH PRN (10:47)
[2018-08-12] MEDS ORDERED: HYDROmorphone INJ1* 1 MG/ML SYRINGE IV PRN (10:47)
[2018-08-12] MEDS ORDERED: fentaNYL* 50 MCG/ML 2 ML VIAL (100 MCG VIAL) IV PRN (10:47)
[2018-08-12] MEDS ORDERED: Naloxone* 0.4 MG/ML 1 ML VIAL IV PRN (10:47)
[2018-08-12] MEDS ORDERED: oxyCODONE/Acetamin 5/325 MG* TAB PO PRN (12:35)
[2018-08-12] MEDS ORDERED: diPHENhydraMINE IV* 50 MG/ML 1 ml VIAL (BENADRYL) IV PRN (12:35)
[2018-08-12] MEDS ORDERED: Magnesium Hydroxide LIQ* 30 ML UDC PO PRN (12:35)
[2018-08-12] MEDS ORDERED: Ondansetron INJ* 2 MG/ML VIAL IV PRN (12:35)
[2018-08-12] MEDS ORDERED: Polyethylene Glycol 3350* 17 GM PACKET PO PRN (12:35)
[2018-08-12] MEDS ORDERED: Mometasone/Formoter 200/5 MDI INH PRN (12:56)
[2018-08-12] MEDS ORDERED: Acetaminophen TAB* 325 MG PO SCH (13:00)
[2018-08-12] MEDS: Lactated Ringers 1000 ML Bag* 1,000 ML IV SCH (14:16)
[2018-08-12] MEDS: oxyCODONE TAB* 5 MG TAB PO PRN ×2 (14:32→18:26)
--- NOTE | 2018-08-12 14:53 | PN ---
Progress Note - Progress Note Date of Service: 08/12/18 Note: resting comfortably in bed. no complaints of pain. denies SOB/ chest pain. able to dorsi flex/plantar flex, 2+ DP pulse, intact sensation
[2018-08-12] MEDS: Acetaminophen TAB* 325 MG PO SCH (15:29)
[2018-08-12] MEDS: oxyCODONE/Acetamin 5/325 MG* TAB PO PRN ×2 (16:36→20:40)
[2018-08-12] MEDS ORDERED: Warfarin TAB(*) 6 MG PO ONE (17:00)
[2018-08-12] MEDS: ceFAZolin 1 GM ADVAN(*) 1 GM in NS 0.9% 50 ML* 50 ML IVPB SCH (17:41)
[2018-08-12] MEDS: Tamsulosin CAP* 0.4 MG PO SCH (18:26)
[2018-08-12] MEDS: Atorvastatin* 10 MG TAB PO SCH (20:42)
[2018-08-12] MEDS: Docusate CAP* 100 MG PO SCH (20:42)
[2018-08-12] MEDS: Morphine VIAL* 4 MG/ML VIAL (1 ml vial) IV PRN (22:27)
--- NOTE | 2018-08-13 00:23 | OP ---
DATE OF OPERATION: 08/12/18 - ROOM #342 DATE OF : 62 SURGEON: Elham Ramirez MD STORE PRODUCT DEMONSTRATOR: [employer]IPE [employer]. Ms. Fox did help throughout the procedure with preparation of the leg, wound retraction, manipulation of the knee, and wound closure. ANESTHESIOLOGIST: Dr. Tee. ANESTHESIA: Spinal. PRE-OP DIAGNOSIS: Severe end-stage degenerative osteoarthritis of the left knee joint. POST-OP DIAGNOSIS: Severe end-stage degenerative osteoarthritis of the left knee joint. OPERATIVE PROCEDURE: Left total knee arthroplasty. TOURNIQUET TIME: 59 minutes. COMPLICATIONS: None. ESTIMATED BLOOD LOSS: 200 cc. SPECIMENS: Bone and cartilage from the left knee joint sent to Pathology. HARDWARE USED: This is cemented [employer] total knee arthroplasty hardware. Two packages of Simplex bone cement were used. For the femur, a left Oxinium 6 Narrow posterior stabilized region femoral component; for the tibia, a left size 5 Nury II tibial base plate; for the insert, a 9-mm posterior stabilized articular insert size 5/6; and for the patella, 35-mm 3-peg all poly patella. BRIEF HISTORY/INDICATIONS: Mr. Acuna is a 57-year-old gentleman with years of increasingly severe left knee pain. Radiographs showed [id number] arthritis. He failed conservative treatment with anti-inflammatories, pain medications, intra-articular injection, and physical therapy. Due to continued pain and decreased quality of life, he elected to undergo left total knee arthroplasty. Informed consent was obtained from the patient. He understands the risks of surgery include, but are not limited to bleeding, infection, damage to nearby structures, continued pain, need for further surgery, intraoperative fracture, nerve palsy, hardware failure or loosening, knee stiffness, loss of motion, stroke, heart attack, blood clot, and . He wishes to proceed. INTRAOPERATIVE FINDINGS: Intraoperatively, the patient was noted to have severe degenerative loss of cartilage in all three compartments with extensive osteophyte formation. DESCRIPTION OF PROCEDURE: Mr. Acuna was identified in the preanesthesia unit. His left lower extremity was marked as the correct operative site. Informed consent was signed and placed in the chart. The patient was taken to the operating room and placed under anesthesia without difficulty. Marvin catheter was placed. The tourniquet was placed on the left thigh. The left lower extremity was prepped and draped in the usual sterile fashion. Preop time-out was made to correctly identify the patient side and site. Appropriate perioperative antibiotics were given within 1 hour of incision. Tourniquet was inflated until the tourniquet time for this procedure was 59 minutes. A midline knee incision was made with a 10 blade and carried down to the extensor mechanism. A new 10 blade was used to make a standard medial parapatellar arthrotomy. The patella was subluxed laterally. Electrocautery was used to subperiosteally elevate the soft tissue off the superomedial tibia. The knee was flexed up. The anterior horn of the lateral meniscus and ACL were sharply released. A drill was used to enter the distal femur. Intramedullary distal femoral cutting guide was pinned on the distal femur. Oscillating saw was used to make the distal femoral cut. Next, the external rotation guide was pinned on the distal femur. Distal femur was sized to a size 6. Size 6 multi-cutting jig was pinned on the distal femur. Oscillating saw was used to make the 4 chamfer cuts. Next, the PCL was completely released and the tibia was subluxed anteriorly. Extramedullary tibial cutting guide was pinned on the proximal tibia. Oscillating saw was used to make the proximal tibial cut perpendicular to the mechanical axis of the tibia. The bone was carefully removed. The knee was brought out into full extension. Spacer block had good fit with the knee in full extension. Medial and lateral ligaments were well balanced. Flexion and extension gaps were well balanced. A lamina land appraiser was placed both medially and laterally. Any remaining meniscus was carefully removed using electrocautery. Curved osteotome was used to remove any posterior osteophytes. Tibial tray and drop hansel were placed to once again confirm the satisfactory tibial cut. A trial left 6 Narrow femoral trial was impacted on to the distal femur and had excellent fit and stability. The box for the posterior stabilized implant was prepared using a reamer and box cut osteotome. Size 5 tibial tray trial with a 9-mm insert trial was placed and the knee was taken through a range of motion. The knee had full extension to a 130 degrees of flexion with satisfactory patellofemoral tracking. The patella was everted. A 9 mm of patellar bone and cartilage was carefully removed using an oscillating saw. The patella was sized to a size 35. Three peg holes were drilled to the size 35 guide. A 35 trial patella was placed and the knee was taken through a range of motion. There was satisfactory patellofemoral tracking. All trials were carefully removed. The tibia was subluxed anteriorly and sized to a size 5. Proximal tibia was prepared using a size 5 keel punch. All bony cut surfaces were copiously irrigated with sterile saline and dried. Final implants were cemented in place starting with the tibia , followed by the femur, and last the patella. A 9-mm insert trial was placed and the knee was brought out into full extension. Tourniquet was turned down. The knee was copiously irrigated with sterile saline. Electrocautery was used to obtain meticulous hemostasis. Once the cement had fully cured, the insert trial was removed. Any excess cement was removed from around the capsule and hardware. Final insert chosen was a 9-mm posterior stabilized articular insert size 5/6. This was locked in position on the tibial tray. Stability of the insert was checked and rechecked and noted to be stable. The extensor mechanism was closed using interrupted #1 Vicryls. The rest of the incision was closed in a layered fashion using 0 and 2-0 Vicryls. Skin was closed using running 3-0 nylon suture. Sterile Xeroform, 4x4s, and Webril were used to cover the incision. Peter wrap and cold pack were placed over this. The patient's anesthesia was reversed without difficulty. He was taken to the PACU in stable condition. Intended weightbearing will be weightbearing as tolerated. Intended DVT prophylaxis will be Eliquis. [id number]/[facility] #: [id number] JD
--- NOTE | 2018-08-13 00:40 | CONS ---
CC: Dr. Jung Gonsales; Dr. Elham Ramirez * CONSULTATION REPORT: DATE OF CONSULT: 08/12/18 PRIMARY CARE PROVIDER: Dr. Jung Gonsales. PHYSICIAN REQUESTING CONSULTATION: Dr. Elham Ramirez. ATTENDING PHYSICIAN: Dr. Belkys Guzman (dictated by Bruno Santos NP). REASON FOR CONSULT: Co-medical management in a patient with a history of hypertension, hypercholesterolemia and sleep apnea. HISTORY OF PRESENT ILLNESS: Mr. Acuna is a 57-year-old male with past medical history significant for hypertension, hypercholesterolemia, and sleep apnea, who has failed conservative treatment for left knee pain. Mr. Acuna states that prior to his presentation today, he has been in his usual state of health. Denies any fevers, chills, chest pain, shortness of breath, nausea, vomiting, diarrhea, or urinary symptoms. The hospitalists were asked to assist with co- medical management of this patient during his hospitalization. Postoperatively , he is doing well and has no complaints. PAST MEDICAL HISTORY: 1. Hypertension. 2. Hyperlipidemia. 3. Sleep apnea. PAST SURGICAL HISTORY: 1. Status post right knee arthroscopy. 2. Status post right total knee arthroplasty. 3. Status post left knee arthroscopy. 4. Status post nasal surgery. MEDICATIONS: Home medications include: 1. Lipitor 10 mg oral daily. 2. Viagra 100 mg by mouth 15 minutes before sexual activity. 3. Avalide 150-12.5 mg oral daily. 4. Clonazepam 1 to 2 mg by mouth at bedtime. 5. Aspirin 81 mg oral daily. 6. Dulera 200-5 mcg 2 puffs inhalation twice daily. ALLERGIES: No known drug allergies. FAMILY HISTORY: The patient's father had a history of his first DE in his 50s and he passed due to heart disease. Father also with a history of diabetes and cancer. Mother with a history of stroke and a sister with a history of stroke in her 50s. SOCIAL HISTORY: The patient is a former smoker. He occasionally drinks alcohol. Denies recreational drugs. His , Macarena Acuna will be his surrogate decision maker in the event he is unable to make decisions for himself. REVIEW OF SYSTEMS: I performed an 11-point review of systems. All the pertinent positives and negatives are mentioned in the history of present illness. Remaining of review of systems are negative. PHYSICAL EXAMINATION: Vital Signs: Temperature 99.0, heart rate 79, respiratory rate 16, O2 sat 96% on room air, blood pressure 122/70. General Appearance: The patient is alert, pleasant, appears to be in no acute distress. HEENT: Normocephalic, atraumatic. Pupils are equal and reactive to light. Extraocular movements are intact. Respiratory: There is no accessory muscle use. Lungs are clear to auscultation bilaterally. Cardiovascular: Regular rate and rhythm. S1, S2 present. There are no murmurs, rubs or gallops. Abdomen : Soft, nontender, nondistended. Bowel sounds present x4. Extremities: There is no lower extremity edema. DP and PT pulses are 2+ and symmetric. Musculoskeletal: There is no clubbing or cyanosis noted. The patient exhibits good strength in all extremities. Neurological: The patient is alert and oriented x4. Cranial nerves II through XII are grossly intact. Psychological: The patient is calm and cooperative. Skin: There are no rashes or abnormalities. He has a dressing to his left knee that is clean, dry, and intact in his left knee. DIAGNOSTIC STUDIES/LABORATORY DATA: Preoperative labs from 01/02/18, reveals a sodium of 136, potassium 4.1, chloride 103, CO2 of 25. BUN 19, creatinine 0.88. Glucose 102. White blood cell count 5.3, hemoglobin 13.9, hematocrit 40, platelet count 230. IMPRESSION: Mr. Acuna is a 57-year-old male with past medical history significant for hypertension, hyperlipidemia, and sleep apnea, who presented to the hospital for an elective left total knee arthroplasty with Dr. Elham Ramirez today. The hospitalists will assist with co-medical management of this patient during his hospitalization. ASSESSMENT/PLAN: 1. Left knee pain. Status post left total knee arthroplasty, postop day. Management will be per Orthopedic Surgery. He will be placed on a bowel regimen , pain management regimen, have his H and H trended, have urinary catheter in place through the morning. He will have SCDs and be on warfarin bridge to Lovenox per Orthopedic Surgery. 2. Hypertension. The patient has mostly been normotensive in his recovery. He did have some hypertension when he first was in the recovery room. He will be continued on his Avalide with hold parameters. 3. Hyperlipidemia. He will be continued on his home Lipitor. 4. Sleep apnea. We will have the patient on capnography overnight and he will continue on his home CPAP. 5. Fluids, electrolytes, and nutrition. He will be on a regular diet. 6. Code status. Full code. 7. DVT prophylaxis. He will be on Lovenox bridge to warfarin per Orthopedic Surgery. 8. Disposition: Disposition per Orthopedic Surgery. TIME SPENT: Time for this consultation was approximately 60 minutes, greater than half that was spent with the patient discussing medications, past medical history, the events leading up to her arrival today, and performing a physical examination. The case has been reviewed with the attending, Dr. Guzman, who agrees with the plan of care. BRUNO SANTOS, DEBORAH [id number]/[facility] #: [id number] JD
[2018-08-13] MEDS: ceFAZolin 1 GM ADVAN(*) 1 GM in NS 0.9% 50 ML* 50 ML IVPB SCH ×2 (00:59→09:34)
[2018-08-13] MEDS: Lactated Ringers 1000 ML Bag* 1,000 ML IV SCH (01:00)
[2018-08-13] MEDS: oxyCODONE/Acetamin 5/325 MG* TAB PO PRN ×6 (01:07→23:07)
[2018-08-13] MEDS: Acetaminophen TAB* 325 MG PO SCH ×3 (04:58→16:33)
[2018-08-13 06:15] LABS: Hematocrit 36 % (42-52); Hemoglobin 12.2 g/dl (14.0-18.0); Platelet Count 190 10^3/ul (150-450)
[2018-08-13 06:18] LABS: INR 1.14 (0.77-1.02)
[2018-08-13 06:30] LABS: BUN/Creatinine Ratio 15.7 (8-20); EGFR Non-African American 95.8 (>60); Potassium 3.9 mmol/L (3.5-5.0)
[2018-08-13] MEDS: Losartan TAB* 25 MG PO SCH (07:47)
[2018-08-13] MEDS: Vitamin THERAPEUTIC TAB PO SCH (07:48)
[2018-08-13] MEDS: Docusate CAP* 100 MG PO SCH ×2 (07:48→20:45)
[2018-08-13] MEDS: oxyCODONE TAB* 5 MG TAB PO PRN ×4 (07:49→20:07)
[2018-08-13] MEDS: Hydrochlorothiazide TAB* 25 MG PO SCH (07:55)
[2018-08-13] MEDS: Morphine VIAL* 4 MG/ML VIAL (1 ml vial) IV PRN (08:58)
[2018-08-13] MEDS ORDERED: Hydrochlorothiazide TAB* 25 MG PO SCH (09:00)
[2018-08-13] MEDS ORDERED: Losartan TAB* 25 MG PO SCH (09:00)
--- NOTE | 2018-08-13 10:12 | PN ---
Progress Note - Progress Note Date of Service: 08/13/18 SOAP: Subjective: []Patient seen OOB in chair, moderate knee pain but overall tolerable. Denies SOB, CP, palpitations or dizziness. Objective: [] Vital Signs Temp 98.5 F 08/13/18 07:27 Pulse 63 08/13/18 07:27 Resp 16 08/13/18 08:58 BP 116/64 08/13/18 07:27 Pulse Ox 97 08/13/18 07:27 Intake & Output 08/12/18 08/13/18 08/13/18 18:59 06:59 18:59 Intake Total 1500 1390 Output Total 400 900 200 Balance 1100 490 -200 Weight 211 lb Intake: IV Fluids 1500 990 LR 990 NS 50ML, Cefazolin 2G 50 lr 1450 Oral 400 Output: Urine 200 Marvin 400 900 Laboratory Results - last 24 hr 08/13/18 08/13/18 08/13/18 04:56 04:56 04:56 Hgb 12.2 L Hct 36 L Plt Count 190 MPV 7.0 L INR (Anticoag Therapy) 1.14 H Sodium 134 L Potassium 3.9 Chloride 102 Carbon Dioxide 26 Anion Gap 6 BUN 13 Creatinine 0.83 Est GFR ( Amer) 116.0 Est GFR (Non-Af Amer) 95.8 BUN/Creatinine Ratio 15.7 Glucose 126 H Calcium 8.0 L left knee dressings are dry and intact calf mild tenderness to stretch, NT to palpation, no edema sensation intact distally + DF left ankle Assessment: []s/p LTK arthroplasty POD #1 Plan: []PT/OT WBAT LLE Coumadin with Lovenox bridge, 8 mg Coumadin today Dressing change 08/14/18, discharge home tomorrow
[2018-08-13] MEDS: Enoxaparin(*) 40 MG/0.4 ML SYR SUBCUT SCH (13:52)
--- NOTE | 2018-08-13 16:20 | PN ---
Subjective Date of Service: 08/13/18 Interval History: Patient seen and examined at bedside. Denies fever, chills, shortness of breath , chest discomfort, N/V/D. Pt states that his pain is mostly controlled. Family History: Unchanged from Admission Social History: Unchanged from Admission Past Medical History: Unchanged from Admission Objective Active Medications: Acetaminophen (Tylenol Tab*) 975 mg PO 0730,1530,2330 KATELYNN Atorvastatin Calcium (Lipitor*) 10 mg PO 2100 KATELYNN Diphenhydramine HCl (Benadryl Iv*) 25 mg IV Q6H PRN Reason: itching Docusate Sodium (Colace Cap*) 100 mg PO BID KATELYNN Enoxaparin Sodium (Lovenox(*)) 40 mg SUBCUT Q24H KATELYNN Hydrochlorothiazide (Hydrodiuril Tab*) 12.5 mg PO QAM KATELYNN Lactated Ringer's (Lactated Ringers 1000 Ml Bag*) 1,000 mls @ 100 mls/hr IV PER RATE KATELYNN Losartan Potassium (Cozaar Tab*) 50 mg PO QAM KATELYNN Magnesium Hydroxide (Milk Of Magnesia Liq*) 30 ml PO Q6H PRN Reason: constipation Mometasone Furoate/Formoterol Fumar (Dulera 200/5 Mdi*) 2 puff INH BID PRN Reason: SOB/WHEEZING Morphine Sulfate (Morphine Vial*) 2 mg IV Q2H PRN Reason: PAIN Multivitamins (Theragran Tab*) 1 tab PO DAILY KATELYNN Ondansetron HCl (Zofran Inj*) 4 mg IV Q6H PRN Reason: nausea Oxycodone HCl (Roxycodone Tab*) 10 mg PO Q4H PRN Reason: PAIN - MODERATE TO SEVERE Oxycodone/Acetaminophen (Percocet 5/325 Tab*) 1 tab PO Q4H PRN Reason: PAIN Oxycodone/Acetaminophen (Percocet 5/325 Tab*) 2 tab PO Q4H PRN Reason: PAIN Polyethylene Glycol/Electrolytes (Miralax*) 17 gm PO DAILY PRN Reason: Constipation Tamsulosin HCl (Flomax Cap*) 0.4 mg PO QPM KATELYNN Warfarin Sodium (Coumadin Tab(*)) 8 mg PO ONCE@1700 ONE; Protocol Stop: 08/13/18 17:01 Vital Signs - 8 hr 08/13/18 08/13/1819 08:58 10:00 10:09 Temperature Pulse Rate Respiratory 16 16 16 Rate Blood Pressure (mmHg) O2 Sat by Pulse Oximetry 08/13/18 08/13/18 08/13/18 11:13 11:44 12:00 Temperature 98.3 F Pulse Rate 78 Respiratory 16 16 16 Rate Blood Pressure 118/68 (mmHg) O2 Sat by Pulse 97 97 Oximetry 08/13/18 08/13/18 08/13/18 14:08 15:55 16:00 Temperature Pulse Rate Respiratory 16 16 Rate Blood Pressure (mmHg) O2 Sat by Pulse 97 Oximetry Oxygen Devices in Use Now: None Appearance: NAD, laying in bed Ears/Nose/Mouth/Throat: Mucous Membranes Moist Respiratory: Symmetrical Chest Expansion and Respiratory Effort, Clear to Auscultation Cardiovascular: NL Sounds; No Murmurs; No JVD, RRR Abdominal: NL Sounds; No Tenderness; No Distention Neurological: Alert and Oriented x 3, NL Muscle Strength and Tone Lines/Tubes/Other Access: Clean, Dry and Intact Peripheral IV - site benign Nutrition: Taking PO's Result Diagrams: 08/13/18 04:56 08/13/18 04:56 Assess/Plan/Problems-Billing Assessment: Mr. Acuna is a 57 yo male with PMH significant for HTN, HLD, and sleep apnea who presented to the hospital for an elective left total knee arthroplasty with Dr. Ramirez on 08/12/18. - Patient Problems (1) Status post total left knee replacement Code(s): Z96.652 - PRESENCE OF LEFT ARTIFICIAL KNEE JOINT SNOMED Code(s): 4170093688808 Comment: - POD #1, management per orthopedics - stable - Continue PT - Continue pain and bowel regimen (2) Hypertension Code(s): I10 - ESSENTIAL (PRIMARY) HYPERTENSION SNOMED Code(s): 56872497 Comment: - Normotensive, SBP 100-120's - Continue losartan and HCTZ (Takes Avalide at home, resume at discharge) (3) HLD (hyperlipidemia) Code(s): E78.5 - HYPERLIPIDEMIA, UNSPECIFIED SNOMED Code(s): 72231230 Comment: - Continue statin (4) AIDAN (obstructive sleep apnea) Code(s): G47.33 - OBSTRUCTIVE SLEEP APNEA (ADULT) (PEDIATRIC) SNOMED Code(s): 82966657 Comment: - Continue home CPAP (5) DVT prophylaxis Code(s): FXB8864 - SNOMED Code(s): 848303781 Comment: - Continue Lovenox bridge to warfarin (6) Full code status Code(s): Z78.9 - OTHER SPECIFIED HEALTH STATUS SNOMED Code(s): 130096613 Status and Disposition: Inpatient. Disposition per Orthopedics. Thank you for this consultation. We will continue to follow along.
[2018-08-13] MEDS ORDERED: Warfarin TAB(*) 4 MG PO ONE (17:00)
[2018-08-13] MEDS: Tamsulosin CAP* 0.4 MG PO SCH (17:10)
[2018-08-13] MEDS: Atorvastatin* 10 MG TAB PO SCH (20:45)
[2018-08-14] MEDS: Acetaminophen TAB* 325 MG PO SCH ×2 (00:56→07:32)
[2018-08-14] MEDS: oxyCODONE TAB* 5 MG TAB PO PRN ×2 (01:22→05:48)
[2018-08-14] MEDS: oxyCODONE/Acetamin 5/325 MG* TAB PO PRN ×2 (03:46→07:37)
[2018-08-14 05:59] LABS: Hematocrit 35 % (42-52); Hemoglobin 12.1 g/dl (14.0-18.0); Mean Platelet Volume 7.2 fL (7.4-10.4); Platelet Count 168 10^3/ul (150-450)
[2018-08-14 06:10] LABS: INR 1.63 (0.77-1.02)
--- NOTE | 2018-08-14 06:40 | PN ---
Progress Note - Progress Note Date of Service: 08/14/18 SOAP: Subjective: restinf comfortably in bed. pain well controlled. denies SOB/ chest pain Objective: Vital Signs Temp Pulse Resp BP Pulse Ox 98.5 F 74 16 130/69 96 08/14/18 03:35 08/14/18 03:35 08/14/18 05:48 08/14/18 03:35 08/14/18 03:35 Laboratory Last Values Hgb 12.1 g/dl (14.0-18.0) L 08/14/18 05:37 Hct 35 % (42-52) L 08/14/18 05:37 Plt Count 168 10^3/ul (150-450) 08/14/18 05:37 MPV 7.2 fL (7.4-10.4) L 08/14/18 05:37 INR (Anticoag Therapy) 1.63 (0.77-1.02) H 08/14/18 05:37 Sodium 134 mmol/L (135-145) L 08/13/18 04:56 Potassium 3.9 mmol/L (3.5-5.0) 08/13/18 04:56 Chloride 102 mmol/L (101-111) 08/13/18 04:56 Carbon Dioxide 26 mmol/L (22-32) 08/13/18 04:56 Anion Gap 6 mmol/L (2-11) 08/13/18 04:56 BUN 13 mg/dL (6-24) 08/13/18 04:56 Creatinine 0.83 mg/dL (0.67-1.17) 08/13/18 04:56 Est GFR ( Amer) 116.0 (>60) 08/13/18 04:56 Est GFR (Non-Af Amer) 95.8 (>60) 08/13/18 04:56 BUN/Creatinine Ratio 15.7 (8-20) 08/13/18 04:56 Glucose 126 mg/dL (70-100) H 08/13/18 04:56 Calcium 8.0 mg/dL (8.6-10.3) L 08/13/18 04:56 Blood Type A Positive 08/12/18 08:46 Antibody Screen Negative 08/12/18 08:46 incision: c/d; dressing changed PE: able to dorsi flex/plantar flex, NVI Assessment: s/p left TKA; POD #2 Plan: 1) PT/OT- WBAT 2) home today, follow-up with James in 2 weeks 3) continue DVT prophylaxis
[2018-08-14 08:15] VITALS: BP 118/64
[2018-08-14] MEDS: Vitamin THERAPEUTIC TAB PO SCH (08:16)
[2018-08-14] MEDS: Hydrochlorothiazide TAB* 25 MG PO SCH (08:16)
[2018-08-14] MEDS: Docusate CAP* 100 MG PO SCH (08:16)
[2018-08-14] MEDS: Losartan TAB* 25 MG PO SCH (08:16)
[2018-08-14] MEDS: Enoxaparin(*) 40 MG/0.4 ML SYR SUBCUT SCH (09:16)
--- NOTE | 2018-08-14 12:30 | DS ---
AMENDED REPORT NOW INCLUDES DESIGNATED COSIGNER DISCHARGE SUMMARY: DATE OF ADMISSION: 08/12/18 DATE OF DISCHARGE: 08/14/18 SURGEON: Elham Ramirez MD.* (DICTATED BY PIPE GERARD) PRINCIPAL DIAGNOSIS: End-stage osteoarthritis of the left knee. DISCHARGE DIAGNOSIS: End-stage osteoarthritis of the left knee. HISTORY OF PRESENT ILLNESS: Mr. Acuna is a 57-year-old gentleman with continued complaints of left knee pain. He has failed conservative treatment and elected to proceed with a left total knee arthroplasty. HOSPITAL COURSE: He was admitted electively to the hospital on 08/12/18, he underwent a left total knee arthroplasty. He tolerated the procedure well. Postoperatively, he was placed on Lovenox and Coumadin for DVT prophylaxis. On postoperative day 1, his H and H was 12 and 36; on postoperative day 2, 12 and 35. His INR went from 1.14 to 1.63. At the time of discharge, he was afebrile and his vital signs were stable. He was discharged home in stable condition. DISCHARGE MEDICATIONS: 1. Percocet 5/325 one to two tabs every 4 to 6 hours as needed for pain. 2. Colace 100 mg twice daily for constipation. 3. Flexeril 10 mg tabs every 8 hours as needed for muscle spasms. 4. Ambien 5 mg tabs one tab q.h.s. as needed. 5. Coumadin 2 mg tabs, 1 to 4 tabs nightly at 5 p.m. take as directed. 6. Lovenox 40 mg subcu x1 dose. 7. Lipitor 10 mg daily. 8. Hydrochlorothiazide 12.5 mg daily. 9. Losartan potassium 50 mg daily. 10. Flomax 0.4 mg daily. PHYSICAL EXAM UPON DISCHARGE: The incision is clean, dry and healing well. There are no signs of infection. He was able to straight leg raise, able to dorsiflex, plantar flex. He had a 2+ dorsal pedis pulse and intact sensation. He was ambulating with the aid of a walker. DISCHARGE DISPOSITION: He was discharged to home in stable condition. DISCHARGE INSTRUCTIONS: He was discharged home. He is weightbearing as tolerated. He can shower starting tomorrow. He can allow soap and water run over the incision, do not submerge in water. He was given prescriptions for Percocet for pain, Flexeril for muscle spasms, Colace for constipation, Ambien for sleep, one dose of Lovenox and Coumadin, and he was asked to take 8 mg of Coumadin and 6 mg Thursday night. His INR will be rechecked Thursday with [facility]. He will follow up with Dr. Ramirez in her clinic in 2 weeks. PIPE GERARD [id number]/[facility] #: [id number] MTDD
== END 2018-08-14 09:55 | disposition home health service (06) | DRG 302 ==
LOC: AA 06:41 → SSU 14:23
PROVIDERS: ADMIT Orthopaedic Surgery Adult Reconstructive Orthopaedic Surgery; ATTEND Orthopaedic Surgery Adult Reconstructive Orthopaedic Surgery
PROC: 0SRD069 Replacement of Left Knee Joint with Oxidized Zirconium on Polyethylene Synthetic Substitute, Cemented, Open Approach (ICD-10-PCS; principal; 2018-08-12 09:00)
DX: M17.12 Unilateral primary osteoarthritis, left knee (principal); I10 Essential (primary) hypertension; Z96.651 Presence of right artificial knee joint; E78.5 Hyperlipidemia, unspecified; G47.33 Obstructive sleep apnea (adult) (pediatric); J45.909 Unspecified asthma, uncomplicated; M25.462 Effusion, left knee; M21.162 Varus deformity, not elsewhere classified, left knee; N40.0 Benign prostatic hyperplasia without lower urinary tract symptoms; F41.9 Anxiety disorder, unspecified; M25.762 Osteophyte, left knee; Z82.49 Family history of ischemic heart disease and other diseases of the circulatory system; Z83.3 Family history of diabetes mellitus; Z82.3 Family history of stroke; Z82.0 Family history of epilepsy and other diseases of the nervous system; Z87.891 Personal history of nicotine dependence; Z80.9 Family history of malignant neoplasm, unspecified; Z72.89 Other problems related to lifestyle; Z79.01 Long term (current) use of anticoagulants; Z87.442 Personal history of urinary calculi
CPT/HCPCS: 36415; 80048; 85014; 85018; 85049; 85610; 86850; 86900; 86901; 88305; 88311; A9270-GY; J0690; J1100; J1170; J1650; J2250; J2270; J2405; J2704; J2795; J3010

== ENCOUNTER 2019-06-09 12:28 | Observation (INO) | payer BC ==
[2019-06-09 12:49] LABS: ABS Eosinophils 0.2 10^3/ul (0-0.6); ABS Lymphocytes 1.6 10^3/ul (1.0-4.8); ABS Monocytes 0.5 10^3/ul (0-0.8); ABS Neutrophils 3.1 10^3/ul (1.5-7.7); Eosinophil % 3.4 %; Hematocrit 42 % (42-52); Hemoglobin 14.5 g/dL (14.0-18.0); Lymphocyte % 29.5 %; Mean Corpuscular HGB Conc 35 g/dL (31-36); Mean Corpuscular Hemoglobin 33 pg (27-31); Mean Corpuscular Volume 94 fL (80-94); Platelet Count 188 10^3/uL (150-450); Red Blood Count 4.46 10^6 /uL (4.18-5.48); Red Cell Distribution Width 13 % (10-15); White Blood Count 5.4 10^3/uL (3.5-10.8)
[2019-06-09 13:01] LABS: INR 1.11 (0.82-1.09)
[2019-06-09 13:07] LABS: Albumin 4.4 g/dL (3.2-5.2); Albumin/Globulin Ratio 1.7 (1-3); BUN/Creatinine Ratio 20.7 (8-20); Calcium 9.3 mg/dL (8.6-10.3); EGFR African American 117.2 (>60); EGFR Non-African American 96.8 (>60); Globulin 2.6 g/dL (2-4); Potassium 3.6 mmol/L (3.5-5.0); Total Bilirubin 0.8 mg/dL (0.2-1.0)
--- NOTE | 2019-06-09 14:04 | ED ---
HPI Chest Pain - HPI Summary HPI Summary: This pt is a 58 y/o male, accompanied by , [facility] by Dr. Gonsales c/o chest pain last week. 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 Pt states he does a lot of bending due to inability to bend knees secondary to bilateral knee replacement. He notes he has had prior episodes of chest pain in the past. Pt notes last week's chest pain lasted about 5 minutes and then resolved on its own. He reports associated symptoms of palpitations and different breathing, "not so much difficulty breathing." He denies chest pain radiation. PMHx includes HTN, high cholesterol, heart murmur, anxiety. His medications include aspirin (Ecotrin) every day and lipitor. reports pt has seen a billet inspector in the past and had an echo done. Denies hx of stress test. FHx of father with [place] at age 55 and aortic aneurysm. Pt is a former smoker, smoked for 30 years. - History of Current Complaint Chief Complaint: EDChestPainROMI Time Seen by Provider: 06/09/19 13:52 Hx Obtained From: Patient, Family/Fountain Server - Onset/Duration: Started Days Ago Timing: Lasting Minutes - 5 minutes Current Severity: None Pain Intensity: 0 Pain Scale Used: 0-10 Numeric Chest Pain Location: Diffuse Chest Pain Radiates: No Aggravating Factor(s): Nothing Alleviating Factor(s): Nothing Associated Signs and Symptoms: Positive: Chest Pain, Shortness of Breath, Palpitations. Negative: Fever, Chills - Additional Pertinent History Primary Care Physician: [id number] - Allergy/Home Medications Allergies/Adverse Reactions: Allergies Allergy/AdvReac Type Severity Reaction Status Date / Time No Known Allergies Allergy Verified 07/28/18 15:41 PMH/Surg Hx/FS Hx/Imm Hx Endocrine/Hematology History: Denies: Hx Bone Marrow Disease, Hx Diabetes, Hx Sickle Cell Disease, Hx Thyroid Disease, Hx Anemia Cardiovascular History: Reports: Hx Hypercholesterolemia, Hx Hypertension, Other Cardiovascular Problems/Disorders - heart murmur Respiratory History: Reports: Hx Asthma, Hx Sleep Apnea Denies: Hx Chronic Obstructive Pulmonary Disease (COPD), Other Respiratory Problems/Disorders GI History: Reports: Hx Hiatal Hernia - HEP B Denies: Hx Ulcer History: Reports: Hx Kidney Stones Comment Only: Other Problems/Disorders - bph Musculoskeletal History: Reports: Hx Arthritis - ARTHRITIS IN KNEES, Hx Tendonitis - arms and hands 20 yrs ago Denies: Hx Rheumatoid Arthritis, Hx Osteoporosis, Other Musculoskeletal History Sensory History: Denies: Hx Contacts or Glasses, Hx Hearing Aid Opthamlomology History: Denies: Hx Contacts or Glasses Neurological History: Denies: Other Neuro Impairments/Disorders Psychiatric History: Reports: Hx Anxiety - NO MEDS Denies: Other Psychiatric Issues/Disorders - Surgical History Surgical History: Yes Surgery Procedure, Year, and Place: R knee cartilage removed,1981. L knee,. sinus, 1990 Hx Anesthesia Reactions: No Infectious Disease History: No Infectious Disease History: Reports: Hx Hepatitis - hep b, not a carrier Denies: Hx Human Immunodeficiency Virus (HIV), Hx Shingles, Hx Tuberculosis, History Other Infectious Disease, Traveled Outside the in Last 30 Days - Family History Known Family History: Positive: Cardiac Disease - Father with [place] at age 55 and aortic aneurysm, Hypertension Family History: Mother with strokes x2-3. Sister with stroke at age of 50. - Social History Alcohol Use: Occasionally Alcohol Amount: 2 BEERS/DAY Substance Use Type: Reports: None Smoking Status (MU): Former Smoker Amount Used/How Often: pack a day for 25 years Review of Systems Negative: Fever Positive: Palpitations, Chest Pain Positive: Shortness Of Breath All Other Systems Reviewed And Are Negative: Yes Physical Exam - Summary Physical Exam Summary: Constitutional: Well-developed, Well-nourished, Alert. (-) Distressed Skin: Warm, Dry HENT: Normocephalic; Atraumatic Eyes: Conjunctiva normal Neck: Musculoskeletal ROM normal neck. (-) JVD, (-) Stridor Cardio: Rhythm regular, rate normal, Heart sounds normal; Intact distal pulses; Radial pulses are 2+ and symmetric. +Systolic murmur. Pulmonary/Chest wall: Effort normal. (-) Respiratory distress, (-) Wheezes, (-) Rales Abd: Soft, (-) tenderness, (-) Distension, (-) Guarding, (-) Rebound Musculoskeletal: (-) Edema Lymph: (-) Cervical adenopathy Neuro: Alert, Oriented x3 Psych: Mood and affect Normal Triage Information Reviewed: Yes Vital Signs On Initial Exam: Initial Vitals Temp Pulse Resp BP Pulse Ox 98.4 F 81 20 154/69 98 06/09/19 12:32 06/09/19 12:32 06/09/19 12:32 06/09/19 12:32 06/09/19 12:32 Vital Signs Reviewed: Yes Procedures - Sedation Patient Received Moderate/Deep Sedation with Procedure: No Diagnostics - Vital Signs Vital Signs Temp Pulse Resp BP Pulse Ox 06/09/19 12:32 98.4 F 81 20 154/69 98 - Laboratory Lab Results: Lab Results 06/09/19 06/09/19 06/09/19 Range/Units 12:41 12:42 12:42 WBC 5.4 (3.5-10.8) 10^3/uL RBC 4.46 (4.18-5.48) 10^6 /uL Hgb 14.5 (14.0-18.0) g/dL Hct 42 (42-52) % MCV 94 (80-94) fL MCH 33 H (27-31) pg MCHC 35 (31-36) g/dL RDW 13 (10-15) % Plt Count 188 (150-450) 10^3/uL MPV 7.0 L (7.4-10.4) fL Neut % (Auto) 57.3 % Lymph % (Auto) 29.5 % Mcminn % (Auto) 8.9 % Eos % (Auto) 3.4 % Baso % (Auto) 0.9 % Absolute Neuts (auto) 3.1 (1.5-7.7) 10^3/ul Absolute Lymphs (auto) 1.6 (1.0-4.8) 10^3/ul Absolute Monos (auto) 0.5 (0-0.8) 10^3/ul Absolute Eos (auto) 0.2 (0-0.6) 10^3/ul Absolute Basos (auto) 0.0 (0-0.2) 10^3/ul Absolute Nucleated RBC 0.0 10^3/ul Nucleated RBC % 0.0 INR (Anticoag Therapy) 1.11 H (0.82-1.09) Sodium 137 (135-145) mmol/L Potassium 3.6 (3.5-5.0) mmol/L Chloride 103 (101-111) mmol/L Carbon Dioxide 29 (22-32) mmol/L Anion Gap 5 (2-11) mmol/L BUN 17 (6-24) mg/dL Creatinine 0.82 (0.67-1.17) mg/dL Est GFR ( Amer) 117.2 (>60) Est GFR (Non-Af Amer) 96.8 (>60) BUN/Creatinine Ratio 20.7 H (8-20) Glucose 116 H (70-100) mg/dL Calcium 9.3 (8.6-10.3) mg/dL Total Bilirubin 0.80 (0.2-1.0) mg/dL AST 21 (13-39) U/L ALT 29 (7-52) U/L Alkaline Phosphatase 88 (34-104) U/L Troponin I 0.00 (<0.04) ng/mL Total Protein 7.0 (6.4-8.9) g/dL Albumin 4.4 (3.2-5.2) g/dL Globulin 2.6 (2-4) g/dL Albumin/Globulin Ratio 1.7 (1-3) Result Diagrams: 06/09/19 12:42 06/09/19 12:42 Lab Statement: Any lab studies that have been ordered have been reviewed, and results considered in the medical decision making process. - Radiology Chest XR Radiology Interpretation Completed By: Radiologist Summary of Radiographic Findings: IMPRESSION: No active cardiopulmonary disease. Dr. Enriquez has reviewed this report. - EKG 12:27 Cardiac Rate: NL - at 81 bpm EKG Rhythm: Sinus Rhythm EKG Comparison: No Significant Change - compared to 07/28/2018 Summary of EKG Findings: EKG at 1227 shows normal sinus rhythm at rate of 81 bpm. T wave inversion in lead III. Unchanged from prior EKG on 07/28/18. Re-Evaluation - Re-Evaluation First Eval Re-Evaluation Time: 14:38 Comment: Patient agrees with admission. trop neg, CXR unremarkable. Chest Pain Course/Dx - Course Course Of Treatment: 58-year-old male with a history of heart murmur and hypertension as well as hyperlipidemia presents with exertional chest pain. Chest Pain DDX: The patient is well appearing, with stable vitals. Given the patient's clinical presentation, highest on differential is ACS given risk factors including hypertension and hyperlipidemia, exertional chest pain and smoking history as well as family history, will check labs including a troponin , EKG. Plan for admission to hospitalist for telemetry and stress test. heart score: 5. Although less likely, differential also includes the following: -- Pneumothorax: Equal breath sounds, story inconsistent since gradual onset of symptoms. CXR shows no evidence of pneumothorax. Unlikely. --Cardiac tamponade : The history and physical are not concerning for tamponade. No Pulsus Paradoxus , no tachypnea. Unlikely. --Mediastinitis or esophageal rupture: The history is not consistent, as the patient has had no recent history of significant wretching, instrumentation, or mediastinal surgeries. Unlikely. --Aortic dissection: The patient does not describe the classical tearing chest pain radiating into the back, and the CXR does not show mediastinal widening or other signs of aortic dissection. Unlikely. --PE: Vitals wnl (not hypoxic, tachycardic or tachypneic). - Diagnoses Provider Diagnoses: Chest pain - Provider Notifications Discussed Care Of Patient With: Hanna Burt Time Discussed With Above Provider: 14:38 Instructed by Provider To: Admit As Inpatient Discharge ED - Sign-Out/Discharge Documenting (check all that apply): Patient Departure - Admit to [facility] - Discharge Plan Condition: Stable Disposition: ADMITTED TO [facility] Referrals: Jung Gonsales MD [Primary Care Provider] - - Billing Disposition and Condition Condition: STABLE Disposition: Admitted to [facility] - Attestation Statements Document Initiated by Lety: Yes Documenting Scribe: Joyce Edmonds Provider For Whom Lety is Documenting (Include Credential): Angie Enriquez MD Scribe Attestation: Joyce Chavez, scribed for Angie Enriquez MD on 06/09/19 at 1453. Scribe Documentation Reviewed: Yes Provider Attestation: The documentation as recorded by the Joyce regalado accurately reflects the service I personally performed and the decisions made by , Angie Enriquez MD Status of Scribe Document: Viewed
[2019-06-09] MEDS ORDERED: Acetaminophen TAB* 325 MG PO PRN (15:35)
[2019-06-09] MEDS ORDERED: Magnesium Hydroxide LIQ* 30 ML UDC PO PRN (15:35)
[2019-06-09] MEDS ORDERED: Mometasone/Formoter 200/5 MDI INH PRN (15:37)
[2019-06-09] MEDS ORDERED: clonazePAM TAB(*) 1 MG PO PRN (15:38)
--- NOTE | 2019-06-09 19:49 | HP ---
CC: Dr. Jung Gonsales * ADMISSION HISTORY AND PHYSICAL: DATE OF ADMISSION: 06/09/19 PRIMARY CARE PROVIDER: Dr. Jung Gonsales. ATTENDING FOR THIS ADMISSION: Dr. Hanna Gonzales.* (DICTATED BY KYLAH MARCH NP) CHIEF COMPLAINT: Chest pain for 5 minutes 1 week ago. HISTORY OF PRESENT ILLNESS: Mr. cAuna is a 58-year-old patient who presents to the emergency department today as a referral by his primary care provider for complaints of chest pain and some intermittent palpitations last week. 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 He did contact his primary care provider to have a discussion regarding these symptoms and he was referred to the emergency department for evaluation. In the ED, his workup thus far has essentially been negative. His EKG is unremarkable. He does not have any acute ST segment changes. He is in regular sinus rhythm. Troponin is negative. Electrolytes are within normal limits. However, the ED has asked the hospitalist to evaluate the patient for observation and stress test. PAST MEDICAL HISTORY: Significant for hypertension, hyperlipidemia, heart murmur, and anxiety. HOME MEDICATIONS: 1. Trazodone 100 mg q.h.s. 2. Aspirin 81 mg daily. 3. Lipitor 10 mg daily. 4. Avalide 150/12.5 mg 1 tablet p.o. daily. 5. Dulera 200/5 mcg 2 puffs inhaled 2 times a day as needed. 6. Viagra 50 to 100 mg p.o. daily as needed. 7. Klonopin 1 to 2 mg p.o. at bedtime as needed for anxiety or insomnia. 8. Multivitamin 1 tab p.o. daily. ALLERGIES: No known drug allergies. FAMILY HISTORY: Mother with multiple strokes. Sister also with a stroke at age 50. Father with [place] at age 55. SOCIAL HISTORY: The patient has a remote history of smoking, quit 10 years ago. Denies any illicit drug use or alcohol. 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 He is . His , Evangelina, is his healthcare proxy and emergency contact. REVIEW OF SYSTEMS: A 10-point review of systems is negative except as noted otherwise in HPI. PHYSICAL EXAMINATION GENERAL: The patient is a well-appearing gentleman, in no acute distress. VITAL SIGNS: Blood pressure 144/87, heart rate 68, respiratory rate 16, O2 saturation 98% on room air with a temperature of 98.1. HEENT: The patient is atraumatic, normocephalic. PERRLA. Nonicteric sclerae. Oral mucosa is moist. Tongue is midline. NECK: Supple, nontender. No JVD noted. No thyromegaly appreciated. LUNGS: Clear bilaterally to auscultation with no wheezing, rhonchi, or rales. CARDIOVASCULAR: S1, S2 present. No gallops or rubs noted. He has a grade 1 systolic murmur noted. Rate and rhythm are regular. ABDOMEN: Soft, nontender, nondistended. Positive bowel sounds in all 4 quadrants. : Deferred. MUSCULOSKELETAL: There is no clubbing, no cyanosis, no pedal edema. He has +2 distal pulses palpable, full range of motion, steady gait. NEUROLOGIC: Grossly intact. Alert and oriented x3. No focal deficits noted. PSYCHIATRIC: Somewhat anxious, but otherwise cooperative and appropriate. DIAGNOSTIC STUDIES/LAB DATA: WBCs 5.4, RBCs 4.46, hemoglobin 14.5, hematocrit 42, platelets 188. Sodium 137, potassium 3.6, chloride 103, CO2 of 29, BUN 17, creatinine 0.82, GFR 96.8, glucose 116. AST 21, ALT 29, alk phos 88. Troponin is negative at 0.00 x2. Total protein 7.0, albumin 4.4, globulin 2.6, albumin/ globulin ratio is 1.7. Imaging: Chest x-ray: Chest x-ray is essentially clear showing no active cardiopulmonary disease. EKG at 12:30 today shows regular sinus rhythm. No acute ST segment changes. He has 1 premature atrial complex. IMPRESSION: Mr. Acuna is a 58-year-old male patient with history of hypertension and hyperlipidemia, who presents to the ER today with complaint of palpitations and chest pain that resolved spontaneously 1 week ago. PLAN: The patient has been admitted to observation. 1. Chest pain and palpitations. The patient has been admitted to obs. He has been placed on telemetry. We will continue his home medications for his blood pressure. We will continue his aspirin. I have ordered a nuclear stress test in the morning. He will be n.p.o. after midnight. The patient did not show any arrhythmias on his telemetry or his EKG, but we will monitor his tele. He is not currently having palpitations at this time. The patient does endorse that he has had some anxiety in the past. This may be a component of his chest pain. Also, he does endorse having a physical job, does tend to believe that some of this may also be musculoskeletal in nature. In any case, given his personal history and also family history, we will complete the stress test in the morning. 2. History of hypertension. Will be continued on his Avalide and aspirin. 3. Hyperlipidemia. Will be continued on his statin. 4. History of anxiety. We will keep him on his trazodone for this evening and Klonopin as needed. 5. DVT prophylaxis: He is low risk. He can be ambulating as tolerated. 6. Diet. Heart-healthy diet as tolerated for this evening, then n.p.o. after midnight. 7. Code status. He is a full code. 8. Disposition. Admitted to observation. The rest of the patient's course will be determined by further diagnostics, laboratories, and any other input from other providers as warranted during this admission. TIME SPENT: Sixty minutes on admission planning. This plan of care has been discussed with Dr. Hanna Gonzales, the attending on this case, and she is in agreement with the plan. KYLAH MARCH, DEBORAH [id number]/CPS #: [id number] JD
[2019-06-09] MEDS ORDERED: traZODone TAB* 50 MG TAB PO SCH (21:00)
[2019-06-10] MEDS ORDERED: Losartan TAB* 25 MG PO SCH (09:00)
[2019-06-10] MEDS ORDERED: Aspirin EC TAB* 81 MG TAB.EC PO SCH (09:00)
[2019-06-10] MEDS ORDERED: Hydrochlorothiazide TAB* 25 MG PO SCH (09:00)
[2019-06-10] MEDS ORDERED: Atorvastatin* 10 MG TAB PO SCH (09:00)
[2019-06-10 09:56] VITALS: BP 122/70
[2019-06-10] MEDS ORDERED: Regadenoson* 0.4 MG/5 ML SYRINGE ONE (11:24)
--- NOTE | 2019-06-10 14:55 | CONSULT ---
Subjective Date of Service: 06/10/19 Interval History: Admission Date: 06/09/19 Consult date 06/10/2019 Service: Hospitalist CC: Chest pain Reason for consult: Chest pain HISTORY OF PRESENT ILLNESS: Mr. Acuna is a 58-year-old patient man who had chest discomfort radiating to throat a week ago that lasted for 5 minutes at rest. He has a strong family history of cardiovascular disease. He has no further chest discomfort. He denies any dyspnea, sustained continuous palpitations or recent syncope. He ruled out for ACS. He had a stress test today and went nearly 10 minutes on josh protocol without chest discomfort or ischemic ekg changes and was transitioned to lexiscan due to inability to reach target HR and had no chest discomfort. I reviewed his non-AC stress MPI images and they were normal. I discussed this with patient and . PAST MEDICAL HISTORY: hypertension hyperlipidemia anxiety erectile dysfunction HOME MEDICATIONS: 1. Trazodone 100 mg q.h.s. 2. Aspirin 81 mg daily. 3. Lipitor 10 mg daily. 4. Avalide 150/12.5 mg 1 tablet p.o. daily. 5. Dulera 200/5 mcg 2 puffs inhaled 2 times a day as needed. 6. Viagra 50 to 100 mg p.o. daily as needed. 7. Klonopin 1 to 2 mg p.o. at bedtime as needed for anxiety or insomnia. 8. Multivitamin 1 tab p.o. daily. ALLERGIES: No known drug allergies. FAMILY HISTORY: Mother with multiple strokes. Sister also with a stroke at age 50. Father with [place] at age 55. SOCIAL HISTORY: The patient has a remote history of smoking, quit 10 years ago. Denies any illicit drug use or alcohol. 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 He is . His , Evangelina, is his healthcare proxy and emergency contact. Medications Active Medications: Acetaminophen (Tylenol Tab*) 650 mg PO Q4H PRN PRN Reason: MILD PAIN or TEMP > 100.4 Aspirin (Aspirin Ec Tab*) 81 mg PO QAM KATELYNN Atorvastatin Calcium (Lipitor*) 10 mg PO DAILY KATELYNN Clonazepam (Klonopin Tab(*)) 1 mg PO BEDTIME PRN PRN Reason: insomnia Hydrochlorothiazide (Hydrodiuril Tab*) 12.5 mg PO DAILY KATELYNN Losartan Potassium (Cozaar Tab*) 50 mg PO DAILY KATELYNN Magnesium Hydroxide (Milk Of Magnguillermo Liq*) 30 ml PO Q4H PRN PRN Reason: CONSTIPATION Mometasone Furoate/Formoterol Fumar (Dulera 200/5 Mdi*) 2 puff INH BID PRN PRN Reason: SOB/WHEEZING Trazodone HCl (Desyrel Tab*) 50 mg PO BEDTIME KATELYNN Last Admin: 06/09/19 20:47 Dose: 50 mg Home Medications: Mometasone/Formoter 200/5 MDI* [Dulera 200/5 MDI*] 2 puff INH BID PRN 06/18/17 [ History Confirmed 06/09/19] Aspirin EC TAB* [Ecotrin EC Low Dose 81 MG*] 81 mg PO QAM 07/28/18 [History Confirmed 06/09/19] Atorvastatin* [Lipitor 10 MG*] 10 mg PO DAILY 07/28/18 [History Confirmed ] clonazePAM [Klonopin] 1 - 2 mg PO BEDTIME PRN 07/28/18 [History Confirmed ] Irbesartan/Hydrochlor 150/12.5 [Irbesartan/Hydrochlorothi 150-12.5 mg] 1 tab PO DAILY 06/09/19 [History Confirmed 06/09/19] Multivitamins/Minerals TAB* [Theragran/minerals TAB*] 1 tab PO DAILY 06/09/19 [ History Confirmed 06/09/19] Sildenafil (NF) [Viagra (NF)] 50 - 100 mg PO DAILY PRN 06/09/19 [History Confirmed 06/09/19] traZODone TAB* [Desyrel TAB*] 50 mg PO BEDTIME 06/09/19 [History Confirmed 06/09] Review of Systems - Measurements Intake and Output: Intake and Output Last 24 Hours 06/08/19 06/09/19 06/10/19 06/11/19 06:59 06:59 06:59 06:59 Intake Total 720 0 Balance 720 0 Weight 201 lb 9.6 oz Intake: Oral 720 0 - Review of Systems Constitutional Symptoms: Positive: Weight Loss Negative: Weight Gain, Fever Dermatology: Negative: Rash, Skin Lesions HEENT: Negative: Change in Hearing, Vertigo, Tinnitus Eyes: Negative: Change in Vision, Double Vision Thyroid: Negative: Cold Intolerance, Heat Intolerance, Change in Skin/Hair, Radiation Exposure Pulmonary: Negative: Cough, Sputum, Hemoptysis, Wheezing, Respiratory Distress, Shortness of Breath, COPD Cardiology: Positive: Chest Pain Negative: Shortness of Breath, Swelling of Ankles, Peripheral Vascular Dis, Edema, Syncope, Claudication, Paroxysmal Nocturnal Dyspnea, Orthopnea Gastroenterology: Negative: Vomiting, Anorexia, Blood in Stools, Haematemesis, Melena Genital - Urinary: Negative: Dysuria, Hematuria Musculoskeletal: Positive: Sciatica Negative: Joint Pain, Joint Stiffness Endocrinology: Negative: Diabetes, Polydipsia, Polyuria Hematologic/Lymphatic: Positive: Use of Antiplatelet Drugs Negative: Use of Anticoagulant Neurology: Negative: Hx of Stroke\TIA, Hx Seizures Psychiatry: Negative: Unusual Anxiety, Suicidal Ideation Allergic/Immunologic: Negative: Hx HIV, Immunocompromise Review of Systems Statement: All other review of systems negative, unless stated above. Objective Vital Signs: Temp Pulse Resp BP Pulse Ox 98.2 F 67 16 122/70 94 06/10/19 07:15 06/10/19 07:15 06/10/19 07:15 06/10/19 07:15 06/10/19 07:15 Oxygen Devices in Use Now: None Appearance: nad, pleasant Ears/Nose/Mouth/Throat: Clear Oropharnyx, Mucous Membranes Moist Neck: NL Appearance and Movements; NL JVP, Trachea Midline Respiratory: Symmetrical Chest Expansion and Respiratory Effort, Clear to Auscultation Cardiovascular: RRR, No Edema, - - soft flow murmur, normal jvp Abdominal: NL Sounds; No Tenderness; No Distention Extremities: No Edema Skin: No Rash or Ulcers Neurological: Alert and Oriented x 3 Laboratory Results: 06/09/19 12:42 06/09/19 12:42 INR (Anticoag Therapy) 1.11 (0.82-1.09) H 06/09/19 12:41 Total Bilirubin 0.80 mg/dL (0.2-1.0) 06/09/19 12:42 AST 21 U/L (13-39) 06/09/19 12:42 ALT 29 U/L (7-52) 06/09/19 12:42 Alkaline Phosphatase 88 U/L (34-104) 06/09/19 12:42 Total Protein 7.0 g/dL (6.4-8.9) 06/09/19 12:42 Albumin 4.4 g/dL (3.2-5.2) 06/09/19 12:42 Globulin 2.6 g/dL (2-4) 06/09/19 12:42 Albumin/Globulin Ratio 1.7 (1-3) 06/09/19 12:42 06/09/19 06/09/19 06/09/19 12:42 15:41 19:43 Troponin I 0.00 0.00 0.00 12/2017 tri 35, tchol 134, ldl 79, hdl 48.5 EKG Data: ekg 05/12/2019: NSr, normal ekg Assessment/Plan It does not appear that patients chest pain episode was related to myocardial ischemia and the results of his blood work, EKG and stress test were discussed with patient and . He should continue to undergo primary prevention evaluation and treatment through Dr. Gonsales's office. Given his family history , I would have a low threshold to increase statin dose for further LDL lowering (most recent lipids as above)
--- NOTE | 2019-06-10 21:32 | DS ---
CC: Dr. Gonsales * DISCHARGE SUMMARY: DATE OF ADMISSION: 06/09/19 DATE OF DISCHARGE: 06/10/19 PROVIDER: PIPE Decker ATTENDING PHYSICIAN WHILE IN THE HOSPITAL: Dr. Tigist Norman * (dictated by PIPE Decker) PRIMARY CARE PROVIDER: Dr. Gonsales. PRIMARY DIAGNOSIS: Chest pain, noncardiac, likely anxiety related. SECONDARY DIAGNOSES: 1. Hypertension. 2. Hyperlipidemia. 3. Previous history of heart murmur. 4. Anxiety. STUDIES WHILE IN THE HOSPITAL: Exercise stress test. Nuclear medicine scan. Impression: Small area of reversible change in the anterior wall close to apex. Normal ejection fraction and wall motion. Assessment: Low risk. HISTORY OF PRESENT ILLNESS/HOSPITAL COURSE: Shabbir Acuna is a 58-year-old white male with past medical history significant for anxiety, history of prior heart murmur, hypertension, hyperlipidemia. He presented to the emergency department on 06/09/19 upon direction of his primary care provider, Dr. Gonsales. The patient initially presented to Dr. Gonsales in the office to discuss 1 episode of chest pain for 5 minutes that he experienced a week prior. The patient was advised by Dr. Gonsales to report to emergency department for further assessment given his cardiac disease in his family. For further details, please see the admitting history and physical written by Ramila Wolf NP. In the emergency department, the EKG was overall unremarkable and there were no ischemic changes. There was 1 PAC noted. During his hospital stay, he was admitted on telemetry and there is normal sinus rhythm and no found arrhythmias or concerning changes. The patient had an exercise stress test, note findings as above. I asked Dr. Goldberg if he could please evaluate the nuclear scan. Dr. Goldberg of the cardiology service personally reviewed the scan and believes that it was within normal limits. The patient was continued on his home medications during his hospital stay. He was asymptomatic during his hospital stay including not experiencing anginal symptoms or palpitations. He did discuss with me that he has multiple cups of coffee every morning. PHYSICAL EXAM ON THE DAY OF DISCHARGE: General: Middle-aged white male who appears stated age, sitting on side of bed, appearing comfortable, in no acute distress. Eyes: PERRLA. Sclerae anicteric. ENT: Mucous membranes appear moist. Lungs: Clear to auscultation bilaterally. Cardio: Regular rate and rhythm without murmurs, rubs, or gallops appreciated at the time of exam. Abdomen: Soft, nontender, nondistended. Extremities: No clubbing, cyanosis, or edema. Neuro: Alert and oriented x3. No focal deficits. Able to move all extremities, no tremors. DISCHARGE PLAN: Diet: Regular unrestricted diet. Activity: The patient may return to his normal activity as tolerated. 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 However, I did explain that he did not have frequent PACs during his hospital. He can follow up with his primary care provider as needed and continue all home medications. He is advised to return to the emergency department if he is having severe chest pain, difficulty breathing, palpitations (especially if associated with shortness of breath or dizziness) or loss of consciousness. DISCHARGE MEDICATIONS: Continued home medications: 1. Multivitamin 1 tab p.o. daily. 2. Irbesartan 150 mg/hydrochlorothiazide 12.5 mg 1 tab p.o. daily. 3. Lipitor 10 mg p.o. daily. 4. Dulera 2 puffs inhaled b.i.d. p.r.n. shortness of breath/wheezing. 5. Aspirin 81 mg p.o. daily. 6. Trazodone 50 mg p.o. at bedtime. 7. Klonopin 1 to 2 mg p.o. at bedtime p.r.n. insomnia. 8. Sildenafil 50 to 100 mg p.o. daily p.r.n. erectile dysfunction. CONDITION ON DISCHARGE: Stable. DISPOSITION: Home. TIME SPENT: Approximately 35 minutes was spent on this discharge, approximately half that time was spent at the bedside evaluating the patient and discussing the plan of care and coordinating care for discharge. PIPE DECKER [id number]/[facility] #: [id number]
== END 2019-06-10 15:22 | disposition home or self-care (01) ==
LOC: ED 12:28 → MEDTELE 15:35
PROVIDERS: ADMIT Internal Medicine; ATTEND Internal Medicine
DX: R07.89 Other chest pain (principal); R00.2 Palpitations; I10 Essential (primary) hypertension; E78.5 Hyperlipidemia, unspecified; F41.9 Anxiety disorder, unspecified; Z79.899 Other long term (current) drug therapy; Z79.82 Long term (current) use of aspirin; E78.00 Pure hypercholesterolemia, unspecified; Z87.891 Personal history of nicotine dependence; Z87.442 Personal history of urinary calculi
CPT/HCPCS: 36415; 71046; 78452; 80053; 84484; 85025; 85610; 93005; 93017; 99284; A9270-GY; A9502; G0378; J2785

== ENCOUNTER 2020-09-06 08:00 | Observation (INO) ==
[~2020-09-06 08:00] MED LIST changes: -Buffered Lidocaine 0.9% SYRIN* 5 ML/SYR SYRINGE INTRADERM ONE; +Buffered Lidocaine 1% SYRIN 1 ml INTRADERM ONE; -Dexamethasone IV* 4 MG/ML 1 ML (4 MG) IV SLOW PU ONE; -Famotidine IV* 10 MG/ML 2 ML (20 mg) IV ONE; -Gabapentin CAP(*) 300 MG PO ONE; -Lactated Ringers 1000 ML Bag* 1,000 ML IV SCH; +Lactated Ringers 1000 ml BAG 1,000 ML IV SCH; -Tranexamic Acid 1,000 MG in NS 0.9% 50 ML* (outpatient use) IV SCH; -celeCOXIB CAP* 200 MG PO ONE
[2020-09-06] MEDS ORDERED: Propofol 10 MG/ML 20 ML BTL ONE ×2 (12:22)
[2020-09-06] MEDS ORDERED: ceFAZolin 2 GM PREMIX 2 GM/50 ML BAG ONE (12:24)
[2020-09-06] MEDS ORDERED: Midazolam 2 mg/2 ml VIAL 1 mg/ml 2 ml VIAL (2 mg) ONE ×2 (14:07→14:42)
[2020-09-06] MEDS ORDERED: Naloxone 0.4 mg VIAL 0.4 mg/ml 1 ml VIAL IV PRN (14:30)
[2020-09-06] MEDS ORDERED: HYDROmorphone 1 MG/1 ML SYRINGE IV PRN (14:30)
[2020-09-06] MEDS ORDERED: Ondansetron 4 mg VIAL 2 MG/ML 2 ml VIAL IV PRN ×2 (14:30→16:31)
[2020-09-06] MEDS ORDERED: Glycopyrrolate IV 0.2 MG/ML 1 ML VIAL ONE (15:19)
[2020-09-06] MEDS ORDERED: Ketamine HCL 50 mg/ml 10 ml VIAL (500 MG) ONE (15:20)
[2020-09-06] MEDS ORDERED: Lactulose 30 ml UDC PO PRN (16:31)
[2020-09-06] MEDS ORDERED: diPHENhydraMINE 25 mg TAB PO PRN (16:31)
[2020-09-06] MEDS ORDERED: Magnesium Hydroxide LIQ 30 ML UDC PO PRN (16:31)
[2020-09-06] MEDS ORDERED: Ondansetron ODT 4 mg TAB 4 MG TAB PO PRN (16:31)
[2020-09-06] MEDS ORDERED: diPHENhydraMINE IV 50 MG/ML 1 ml VIAL (BENADRYL) IV PRN (16:31)
[2020-09-06] MEDS ORDERED: Lactated Ringers 1000 ml BAG 1,000 ML IV SCH (17:00)
[2020-09-06] MEDS ORDERED: fentaNYL 100 mcg/2 ml 50 MCG/ML VIAL ONE ×2 (17:02→18:13)
[2020-09-06] MEDS ORDERED: EPHEDrine (Pressors) 50 MG/ML VIAL ONE (18:04)
[2020-09-06] MEDS: fentaNYL 100 mcg/2 ml 50 MCG/ML VIAL IV PRN ×2 (18:15→18:26)
[2020-09-06] MEDS: Morphine 2 MG/ML SYRINGE IV PRN (20:20)
[2020-09-06] MEDS: Magnesium Hydroxide LIQ 30 ML UDC PO SCH (20:22)
[2020-09-06] MEDS: Morphine ER 15 mg TAB ** extended release PO SCH (21:39)
[2020-09-06] MEDS: ceFAZolin 1 GM ADVAN 1 GM in NS 0.9% 50 ML 50 ML IVPB SCH (23:07)
[2020-09-07] MEDS: Morphine 2 MG/ML SYRINGE IV PRN (00:33)
[2020-09-07 05:37] LABS: Hematocrit 35 % (42-52); Hemoglobin 12.4 g/dL (14.0-18.0); Mean Platelet Volume 7.1 fL (7.4-10.4); Platelet Count 161 10^3/uL (150-450)
[2020-09-07 05:54] LABS: BUN/Creatinine Ratio 19.6 (8-20); Calcium 8.1 mg/dL (8.6-10.3); EGFR African American 101.9 (>60); EGFR Non-African American 84.2 (>60)
[2020-09-07] MEDS: ceFAZolin 1 GM ADVAN 1 GM in NS 0.9% 50 ML 50 ML IVPB SCH ×2 (06:18→14:31)
[2020-09-07] MEDS: Morphine ER 15 mg TAB ** extended release PO SCH (08:16)
[2020-09-07] MEDS: Magnesium Hydroxide LIQ 30 ML UDC PO SCH (08:17)
[2020-09-07] MEDS ORDERED: Vitamin THERAPEUTIC TAB PO SCH (09:00)
[2020-09-07 11:41] VITALS: BP 121/64
== END 2020-09-07 15:36 | disposition home or self-care (01) ==
LOC: AA 11:50 → INTOOBSV 11:50 → SSU 19:01
PROVIDERS: ADMIT Orthopaedic Surgery Adult Reconstructive Orthopaedic Surgery; ATTEND Orthopaedic Surgery Adult Reconstructive Orthopaedic Surgery

== ENCOUNTER 2023-07-16 07:30 | Observation (INO) ==
[2023-09-15] MEDS ORDERED: Tranexamic Acid 1 GM/100ML BAG 2,000 MG/200 ML BAG IV ONE (12:17)
[2023-09-15] MEDS ORDERED: ceFAZolin 2 GM PREMIX 2 GM/50 ML BAG ONE (12:17)
[2023-09-15] MEDS ORDERED: Famotidine IV 10 MG/ML 2 ml VIAL (20 mg) ONE (12:17)
[2023-09-15] MEDS ORDERED: Buffered Lidocaine 1% SYRIN 1 ml ONE (12:17)
[2023-09-15] MEDS ORDERED: fentaNYL 100 mcg/2 ml 50 MCG/ML VIAL ONE ×2 (12:40→13:15)
[2023-09-15] MEDS ORDERED: Lidocaine 2% PF 5 ML VIAL ONE (12:40)
[2023-09-15] MEDS ORDERED: Midazolam 2 mg/2 ml VIAL 1 mg/ml 2 ml VIAL (2 mg) ONE (12:40)
[2023-09-15] MEDS: Famotidine IV 10 MG/ML 2 ml VIAL (20 mg) IV ONE (12:42)
[2023-09-15] MEDS: Buffered Lidocaine 1% SYRIN 1 ml INTRADERM ONE (12:42)
[2023-09-15] MEDS: Lactated Ringers 1000 ml BAG 1,000 ML IV SCH ×2 (12:42→20:53)
[2023-09-15 12:49] LABS: Rapid COVID-19 Molecular Undetected (Undetected)
[2023-09-15] MEDS ORDERED: ROPIVACAINE 5 MG/ML 30 ML BTL (0.5%) ONE ×2 (13:15→14:32)
[2023-09-15] MEDS ORDERED: Midazolam 5 mg/5 ml VIAL 1 mg/ml 5 ml VIAL (5 mg) ONE (13:15)
[2023-09-15] MEDS ORDERED: Propofol 10 mg/ml 100 ML BTL 1,000 MG/100 ML BTL ONE (13:38)
[2023-09-15] MEDS ORDERED: HYDROmorphone 1 MG/1 ML SYRINGE IV PRN (14:23)
[2023-09-15] MEDS ORDERED: Naloxone 0.4 mg VIAL 0.4 mg/ml 1 ml VIAL IV PRN (14:23)
[2023-09-15] MEDS ORDERED: fentaNYL 100 mcg/2 ml 50 MCG/ML VIAL IV PRN (14:23)
[2023-09-15] MEDS ORDERED: Phenylephrine 40 mcg/mL 10mL (400mcg) SYRINGE ONE ×2 (15:12→15:51)
[2023-09-15] MEDS ORDERED: Ondansetron 4 mg VIAL 2 MG/ML 2 ml VIAL ONE (15:27)
[2023-09-15] MEDS ORDERED: Dexamethasone IV 4 MG/ML VIAL 1 ml VIAL ONE (15:27)
[2023-09-15] MEDS ORDERED: Ondansetron 4 mg VIAL 2 MG/ML 2 ml VIAL IV PRN (15:29)
[2023-09-15] MEDS ORDERED: Magnesium Hydroxide LIQ 30 ML UDC PO PRN (15:29)
[2023-09-15] MEDS ORDERED: Ondansetron ODT 4 mg TAB 4 MG TAB PO PRN (15:29)
[2023-09-15] MEDS ORDERED: Lactulose 30 ml UDC PO PRN (15:29)
[2023-09-15] MEDS ORDERED: Glycopyrrolate IV 0.2 MG/ML 1 ML VIAL ONE (15:32)
[2023-09-15] MEDS ORDERED: Phenylephrine IV 10 MG/ML 1 ml VIAL ONE (16:00)
[2023-09-15] MEDS: Magnesium Hydroxide LIQ 30 ML UDC PO SCH (20:53)
[2023-09-15] MEDS: ceFAZolin 1 GM ADVAN 1 GM in NS 0.9% 50 ML 50 ML IVPB SCH (23:10)
[2023-09-15] MEDS: Morphine 2 MG/ML SYRINGE IV PRN (23:12)
[2023-09-16 06:21] LABS: Hematocrit 35.8 % (38-53); Hemoglobin 12.5 g/dL (13.2-16.3); Mean Platelet Volume 7.2 fL (7.5-11.2); Platelet Count 182 10^3/uL (150-450)
[2023-09-16] MEDS: Vitamin THERAPEUTIC TAB PO SCH (07:38)
[2023-09-16] MEDS: Mometasone/Formoter 200/5 MDI INH SCH (07:40)
[2023-09-16 08:31] LABS: Calcium 8.3 mg/dL (8.6-10.3); Creatinine, Serum 0.88 mg/dL (0.67-1.17); Potassium 4.2 mmol/L (3.5-5.0); eGFR CKD-EPI 97.2 (>60)
[2023-09-16 14:30] VITALS: BP 109/67
== END 2023-09-16 15:20 | disposition home or self-care (01) ==
LOC: AA 09-15 11:34 → INTOOBSV 09-15 11:34 → SSU 09-15 20:22
PROVIDERS: ADMIT Orthopaedic Surgery Adult Reconstructive Orthopaedic Surgery; ATTEND Orthopaedic Surgery Adult Reconstructive Orthopaedic Surgery